=== PATIENT | female | born 1950 | race Caucasian/White ===

== ENCOUNTER → 2019-11-21 12:30 | Outpatient (BNVA) | payer MEDICARE, MEDICAID, SELFPAY | PROVIDERS: Family Provider Nurse Practitioner Family; PCP Nurse Practitioner Family; Visit Provider Nurse Practitioner Family | DX: I10 Essential (primary) hypertension (principal); E78.5 Hyperlipidemia, unspecified; E11.9 Type 2 diabetes mellitus without complications; G47.00 Insomnia, unspecified; M25.50 Pain in unspecified joint; G89.29 Other chronic pain | CPT/HCPCS: 80053; 80061; 83036; 83721; 85025 ==

== ENCOUNTER → 2019-12-19 13:16 | Outpatient (BNVA) | payer MEDICARE, MEDICAID, SELFPAY | PROVIDERS: Visit Provider Internal Medicine Nephrology | DX: N18.3 Chronic kidney disease, stage 3 (moderate) (principal) | CPT/HCPCS: 80069; 82310; 83970 ==

== ENCOUNTER → 2019-12-27 12:35 | Outpatient (BNVA) | payer MEDICARE, MEDICAID, SELFPAY | PROVIDERS: Visit Provider Internal Medicine Nephrology | DX: N18.3 Chronic kidney disease, stage 3 (moderate) (principal); D63.1 Anemia in chronic kidney disease | CPT/HCPCS: 80048; 80069; 81001; 82044; 82306; 82310; 82728; 83540; 83550; 83970; 85025 ==

== ENCOUNTER → 2020-01-04 12:32 | Outpatient (BNVA) | payer MEDICARE, MEDICAID, SELFPAY | PROVIDERS: PCP Nurse Practitioner Family; Visit Provider Specialist | DX: G43.711 Chronic migraine without aura, intractable, with status migrainosus (principal) | CPT/HCPCS: 64615; J0585 ==

== ENCOUNTER → 2020-01-12 11:20 | Outpatient (BNVA) | payer MEDICARE, MEDICAID, SELFPAY | PROVIDERS: PCP Nurse Practitioner Family; Visit Provider Nurse Practitioner Family | DX: M79.641 Pain in right hand (principal); M79.644 Pain in right finger(s); M54.2 Cervicalgia; M54.5 Low back pain; M54.6 Pain in thoracic spine; N18.9 Chronic kidney disease, unspecified; E11.9 Type 2 diabetes mellitus without complications | CPT/HCPCS: 73130; 80048 ==

== ENCOUNTER 2020-01-16 12:08 | Outpatient (CLI) | payer MEDICARE, MEDICAID, SELFPAY ==
--- NOTE | 2020-01-16 12:09 | MM_ITS ---
WS: [id number] Bilateral screening digital mammogram, 01/16/2020 Clinical Data: SCREENING Comparison: 01/03/2019, 12/27/2017, 12/21/2016, 12/17/2015, 08/08/2014, 08/07/2013, 06/09/2012, 05/18/2011, 01/30, 12/21/2008. Findings: The breast parenchymal pattern shows fibroglandular tissue No spiculated masses or clustered calcific ations are seen. There are no secondary signs of carcinoma. There are calcifications in the phillips of small vessels. MM/[place] [id number] Impression: 1. Negative bilateral mammogram unchanged. 2. Recommend annual screening mammograms. BIRADS: 1-Negative FOLLOW UP: 1 Year Follow-up The CAD [employer] was used.
== END 2020-01-16 12:09 | disposition home or self-care (01) ==
LOC: RADSHAW 12:08
PROVIDERS: PCP Nurse Practitioner Family; Visit Provider Nurse Practitioner Family
DX: Z12.31 Encounter for screening mammogram for malignant neoplasm of breast (principal)
CPT/HCPCS: 77067

== ENCOUNTER 2020-01-25 10:19 | Outpatient (CLI) | payer MEDICARE, MEDICAID, SELFPAY ==
--- NOTE | 2020-01-25 10:00 | CT_ITS ---
WS: [id number] CT cervical spine. Additional two-dimensional coronal and sagittal reconstruction was performed. 01/24 Clinical Data: neck pain Comparison: CT neck, 12/09/2012. DLP: 1321.[address] scans at [facility] use at least one of these dose optimization techniques: automat ed exposure control; mA and/or kV adjustment per patient size (includes targeted exams where dose is matched to clinical indication); or iterative reconstruction. Findings: No compression fractures are seen. The disc heights are normal. The spinous processes are in good ali gnment. The odontoid is unremarkable. There is no prevertebral soft tissue swelling. The soft tissues of the neck are not remarkable. C2-C3: No disc bulge, canal stenosis or foraminal stenosis is seen. C3-C4: No disc bulge, canal stenosis or foraminal stenosis is seen. C4-C5: No disc bulge, canal stenosis or foraminal stenosis is seen. C5-C6: No disc bulge, canal stenosis or foraminal stenosis is seen. C6-C7: No disc bulge, canal stenosis or foraminal stenosis is seen. C7-T1: No disc bulge, canal stenosis or foraminal stenosis is seen. CT/CT cervical spin wo con* [id number] Impression: Negative CT scan of the cervical spine.
--- NOTE | 2020-01-25 10:15 | CT_ITS ---
WS: [id number] CT of the lumbar spine, additional two-dimensional coronal and sagittal imaging was obtained. 01/25/20 20 Clinical Data: low back pain Comparison: MRI lumbar spine, 12/02/2009 DLP: 1649.[address] scans at [facility] use at least one of these dose optimization techniques: automat ed exposure control; mA and/or kV adjustment per patient size (includes targeted exams where dose is matched to clinical indication); or iterative reconstruction. Findings: No compression fractures are seen. There is a anterior subluxation of L4 and L5 of 0.3 cm. The disc heights are normal. Transverse processes and SI joints are normal. T12-L1: No canal stenosis, disc bulge or foraminal narrowing is seen. L1-L2: No canal stenosis, disc bulge or foraminal narrowing is seen. L2-L3: No canal stenosis, disc bulge or foraminal narrowing is seen. L3-L4: There is a central disc bulge with facet joint arthritis causing mild canal and foraminal sten osis. L4-L5: There is a central disc bulge along with facet joint arthritis causing canal and foraminal lang nosis. L5-S1: As a central disc bulge along with that joint arthritis causing canal and foraminal stenosis. CT/CT lumbar spine wo con* [id number] Impression: 1. Minimal subluxation of 0.3 cm of L4 and L5. 2. Multilevel canal and foraminal stenosis from bulging discs and facet joint a rthritis from L3-L4 to L5-S1.
== END 2020-01-25 10:20 | disposition home or self-care (01) ==
LOC: RADWPI 10:23
PROVIDERS: PCP Nurse Practitioner Family; Visit Provider Nurse Practitioner Family
DX: M48.07 Spinal stenosis, lumbosacral region (principal); M48.061 Spinal stenosis, lumbar region without neurogenic claudication; M54.5 Low back pain; M54.2 Cervicalgia
CPT/HCPCS: 72125; 72131

== ENCOUNTER → 2020-02-29 13:05 | Outpatient (BNVA) | payer MEDICARE, MEDICAID, SELFPAY | PROVIDERS: PCP Nurse Practitioner Family; Referring Provider Nurse Practitioner Family; Visit Provider Anesthesiology Pain Medicine | DX: M54.5 Low back pain (principal); M54.6 Pain in thoracic spine; M48.00 Spinal stenosis, site unspecified; Z79.891 Long term (current) use of opiate analgesic | CPT/HCPCS: 99203 ==

== ENCOUNTER 2020-03-08 09:58 | Day surgery (SDC) | payer MEDICARE, MEDICAID, SELFPAY ==
[2020-03-07 12:46] VITALS: BMI 26.2
--- NOTE | 2020-03-08 08:44 | P.HP_ITS ---
Same Day Surgery H&P Indication for Procedure/HPI DATE OF PROCEDURE: March 08, 2020 CHIEF COMPLAINT/INDICATIONFOR SURGICAL PROCEDURE: Postprandial diarrhea and screening for colon cancer PREOP DIAGNOSIS: Postprandial diarrhea and screening for colon cancer PLANNED PROCEDRUE: Operation Date: 03/08/20 11:15 Proposed Procedures p EGD 96014 K52.9(Not Applicable) - Jimbo Conway MD s Colonoscopy G0121 Z12.11(Not Applicable) - Jimbo Conway MD Medications/Allergies* Home Medications Medication Instructions Recorded Confirmed Type amlodipine 10 mg tablet 10 mg PO DAILY tab 11/08/19 03/07/20 History atorvastatin 40 mg tablet 40 mg PO .HS tab 11/08/19 03/07/20 History chlorthalidone 25 mg tablet 25 mg PO DAILY tab 11/08/19 03/07/20 History levothyroxine 50 mcg tablet 50 mcg PO DAILY tab 11/08/19 03/07/20 History losartan 100 mg tablet 100 mg PO DAILY tab 11/08/19 03/07/20 History metoprolol tartrate 50 mg tablet 50 mg PO DAILY tab 11/08/19 03/07/20 History nitroglycerin 0.4 mg sublingual 0.4 mg SUBLINGUAL Q5M PRN 11/08/19 03/07/20 History tablet omeprazole 40 mg capsule,delayed 40 mg PO BID 11/08/19 03/07/20 History release sitagliptin 50 mg tablet 50 mg PO DAILY tab 11/08/19 03/07/20 History topiramate 100 mg tablet 100 mg PO BID 11/08/19 03/07/20 History omega-3 fatty acids 1,000 mg 1,000 mg PO DAILY 01/04/20 03/07/20 History capsule potassium chloride 10 mEq 10 meq PO DAILY 01/04/20 03/07/20 History tablet,extended release spironolactone 25 mg tablet 25 mg PO BID 01/04/20 03/07/20 History Allergies/Adverse Reactions Allergy/AdvReac Type Severity Reaction Status Date / Time niacin Allergy Severe ALGY-Rash Verified 02/29/20 14:20 Pertinent History/Comorbid Conditions* Medical History (Updated 02/29/20 @ 14:54 by Junior Olmstead MD) Aortic stenosis Chronic insomnia Chronic pain of multiple joints CKD (chronic kidney disease) Diabetes Diabetic neuropathy Dizziness Dyslipidemia Hyperlipemia Hypertension Myocardial infarction Obesity Family History (Updated 11/08/19 @ 16:18 by Dayami Macario RN) CAD (coronary artery disease) Brother Father Son Myocardial infarction Brother Father Cancer Brother Mother Social History Smoking and tobacco status: never smoked Second hand smoke exposure: No Alcohol intake: unknown Lives independently: Yes Marital status: Legally service: No Current occupational status: retired History of recent travel: No Current gender identity: Female Special shital needs: No Agree to transfusion: Yes Pertinent Exam Findings alert Recommendations Surgery/Procedure today Coding Level of Care Code Acute 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
[2020-03-08 10:22] VITALS: BP 128/75; PULSE 79; RESP 18; TEMP 36.2; O2SAT 98
[2020-03-08] MEDS: sodium chloride 0.9% 1,000 ML 30 ML IV (10:34)
[2020-03-08 10:35] LABS: Glucose Point of Care 186 mg/dL (70-110)
--- NOTE | 2020-03-08 10:58 | ANES.PREANE2 ---
Pre-Anesthetic Assessment Pre-Anesthetic Assessment: Height/Weight: Height 1.7 m Weight 75.75 kg Temp Pulse Resp BP Pulse Ox 97.1 F L 79 18 128/75 98 03/08/20 10:22 03/08/20 10:22 03/08/20 10:22 03/08/20 10:22 03/08/20 10:22 Preop Diagnosis: abdominal pain Proposed Procedure: Operation Date: 03/08/20 11:15 Proposed Procedures p EGD 93353 K52.9(Not Applicable) - Jimbo Conway MD s Colonoscopy G0121 Z12.11(Not Applicable) - Jimbo Conway MD Familial anesthetic complications: None Was Beta Rolan taken within 24 hours: Yes Last intake: Intake Last Liquid Date 03/07/20 Last Liquid Time 19: Last Solid Date 03/07/20 Last Solid Time :00 Social: Social History: No alcohol and No tobacco Exam: Pre-Anes Outpt Exam: alert, oriented x 3, clear to auscultation bilaterally and regular rate & rhythm Airway: Cervical ROM: WNL MP: 3 Dentition: False Pulmonary: Pulmonary: None reported CV/HEM: CV/HEM: HTN and CA (1995) : : Chronic renal Insufficiency Hepatic: Hepatic: None reported GI: GI: GERD and None reported Metabolic: Metabolic: DM Musc/skel: Musc/skel: Lower Back Pain and None reported Neuropsych: Neuropsych: None reported Anesthetic Plan: ASA status: 3 Anesthesia: MAC Risk of > 500 ml blood loss (7ml/kg in children): No Meds/Allergies Current Medications: Current Medications Generic Name Dose Route Start Last Admin Trade Name Freq PRN Reason Stop Dose Admin Sodium Chloride 1,000 mls @ 30 ml s/hr 03/08/20 09:00 03/08/20 10:34 Sodium Chloride 0.9% IV 30 mls/hr .Q24H BERYL Administration PFSH Anesthesia PFSH: Medical History (Updated 02/29/20 @ 14:54 by Junior Olmstead MD) Aortic stenosis Chronic insomnia Chronic pain of multiple joints CKD (chronic kidney disease) Diabetes Diabetic neuropathy Dizziness Dyslipidemia Hyperlipemia Hypertension Myocardial infarction Obesity Social History Smoking and tobacco status: never smoked Second hand smoke exposure: No Alcohol intake: unknown Lives independently: Yes Marital status: Legally service: No Current occupational status: retired History of recent travel: No Current gender identity: Female Special shital needs: No Agree to transfusion: Yes Data Anesthesia Other Labs: Laboratory Results - last 48 hr 03/08/20 10:30 POC Glucose 186 Cardiac Studies: No Data to Display
[2020-03-08 12:23] VITALS: BP 137/65; PULSE 73; RESP 16; TEMP 36.1; O2SAT 98
[2020-03-08 12:55] VITALS: BP 143/66; PULSE 70; RESP 18; O2SAT 70
== END 2020-03-08 13:15 | disposition home or self-care (01) ==
PROVIDERS: PCP Nurse Practitioner Family; Visit Provider Internal Medicine
PROC: 0DJ08ZZ Inspection of Upper Intestinal Tract, Via Natural or Artificial Opening Endoscopic (ICD-10-PCS; CPT 43235; principal; 2020-03-08 11:15)
PROC: 0DJD8ZZ Inspection of Lower Intestinal Tract, Via Natural or Artificial Opening Endoscopic (ICD-10-PCS; CPT 45378; 2020-03-08 11:15)
DX: Z12.11 Encounter for screening for malignant neoplasm of colon (principal); K63.89 Other specified diseases of intestine; K52.9 Noninfective gastroenteritis and colitis, unspecified; E11.22 Type 2 diabetes mellitus with diabetic chronic kidney disease; I12.9 Hypertensive chronic kidney disease with stage 1 through stage 4 chronic kidney disease, or unspecified chronic kidney disease; N18.9 Chronic kidney disease, unspecified; E11.40 Type 2 diabetes mellitus with diabetic neuropathy, unspecified; E78.5 Hyperlipidemia, unspecified; I25.2 Old myocardial infarction; E66.9 Obesity, unspecified; Z68.26 Body mass index [BMI] 26.0-26.9, adult; Z82.49 Family history of ischemic heart disease and other diseases of the circulatory system; K21.9 Gastro-esophageal reflux disease without esophagitis
CPT/HCPCS: 43235; G0121; 12345; 36416; 45380; 82962; J2704; J7030

== ENCOUNTER → 2020-03-11 10:38 | Outpatient (BNVA) | payer MEDICARE, MEDICAID, SELFPAY | PROVIDERS: PCP Nurse Practitioner Family; Visit Provider Anesthesiology Pain Medicine | DX: M47.816 Spondylosis without myelopathy or radiculopathy, lumbar region (principal); M54.6 Pain in thoracic spine | CPT/HCPCS: 64493; 64494; 64495; 88305; J2001; J3490 ==

== ENCOUNTER → 2020-03-18 12:27 | Outpatient (BNVA) | payer MEDICARE, MEDICAID, SELFPAY | PROVIDERS: PCP Nurse Practitioner Family; Visit Provider Internal Medicine Nephrology | DX: N18.3 Chronic kidney disease, stage 3 (moderate) (principal) | CPT/HCPCS: 80069; 81003; 82044; 82306; 82310; 82728; 83550; 83883; 83970; 84155; 84156; 84165; 85025; 86335 ==

== ENCOUNTER → 2020-03-28 09:57 | Outpatient (BNVA) | payer MEDICARE, MEDICAID, SELFPAY | PROVIDERS: PCP Nurse Practitioner Family; Visit Provider Anesthesiology Pain Medicine | DX: M54.41 Lumbago with sciatica, right side (principal); M54.42 Lumbago with sciatica, left side; M48.00 Spinal stenosis, site unspecified; E11.40 Type 2 diabetes mellitus with diabetic neuropathy, unspecified; Z79.891 Long term (current) use of opiate analgesic; G43.711 Chronic migraine without aura, intractable, with status migrainosus | CPT/HCPCS: 64615; 96372; 99213; J0585; J1885 ==

== ENCOUNTER → 2020-04-03 14:41 | Outpatient (BNVA) | payer MEDICARE, MEDICAID, SELFPAY | PROVIDERS: PCP Nurse Practitioner Family; Visit Provider Anesthesiology Pain Medicine | DX: M47.816 Spondylosis without myelopathy or radiculopathy, lumbar region (principal); M54.6 Pain in thoracic spine; M54.9 Dorsalgia, unspecified; Z79.891 Long term (current) use of opiate analgesic | CPT/HCPCS: 64635; 64636; 77003; J1030; J2001 ==

== ENCOUNTER → 2020-04-08 13:42 | Outpatient (BNVA) | payer MEDICARE, MEDICAID, SELFPAY | PROVIDERS: PCP Nurse Practitioner Family; Visit Provider Anesthesiology Pain Medicine | DX: M47.816 Spondylosis without myelopathy or radiculopathy, lumbar region (principal); M54.6 Pain in thoracic spine; M54.9 Dorsalgia, unspecified; Z79.891 Long term (current) use of opiate analgesic | CPT/HCPCS: 64635; 64636; 77003; J1030; J2001 ==

== ENCOUNTER → 2020-04-22 11:07 | Outpatient (BNVA) | payer MEDICARE, MEDICAID, SELFPAY | PROVIDERS: PCP Nurse Practitioner Family; Visit Provider Anesthesiology Pain Medicine | DX: M54.6 Pain in thoracic spine (principal); M54.5 Low back pain; M48.00 Spinal stenosis, site unspecified; E11.40 Type 2 diabetes mellitus with diabetic neuropathy, unspecified; M79.601 Pain in right arm; M79.604 Pain in right leg; M79.605 Pain in left leg; M25.511 Pain in right shoulder; Z79.891 Long term (current) use of opiate analgesic | CPT/HCPCS: 99213; 99214 ==

== ENCOUNTER → 2020-04-29 15:03 | Outpatient (BNVA) | payer MEDICARE, MEDICAID, SELFPAY | PROVIDERS: PCP Nurse Practitioner Family; Visit Provider Nurse Practitioner Family | DX: M25.561 Pain in right knee (principal); M25.562 Pain in left knee; M25.511 Pain in right shoulder; R30.0 Dysuria | CPT/HCPCS: 73030; 73562; 80048; 81000; 85025; 87086 ==

== ENCOUNTER → 2020-06-03 10:57 | Outpatient (BNVA) | payer MEDICARE, MEDICAID, SELFPAY | PROVIDERS: PCP Nurse Practitioner Family; Visit Provider Internal Medicine | DX: Z11.59 Encounter for screening for other viral diseases (principal) | CPT/HCPCS: 87635 ==

== ENCOUNTER 2020-06-05 11:55 | Observation (INO) | payer MEDICARE, MEDICAID, SELFPAY ==
--- NOTE | 2020-05-31 10:01 | ECG_ITS ---
[facility] Test Date: 2020-05-31 Pat Name: Debbie Garcia Department: Room: Gender: Female Proctologist: : 1950 Requested By: Beni León Order Number: [id number] Alethea MD: Donnie Rush M.D. Measurements Intervals [place] Rate: 62 P: 29 AR: 171 QRS: -8 QRSD: 100 T: 2 QT: 381 QTc: 390 Interpretive Statements SINUS RHYTHM LOW QRS VOLTAGE IN PRECORDIAL LEADS [QRS DEFLECTION < 1.0 mV IN CHEST LEADS] POSSIBLE ANTERIOR MYOCARDIAL INFARCTION [30 ms Q WAVE IN V3/V4, OR R < 0.2 mV IN V4], PROBABLY OLD Compared to ECG 07/04/2018 10:14:19 Low QRS voltage now present Myocardial infarct finding still present Electronically Signed On 05-31-2020 16:16:41 CDT by Donnie Rush M.D. [email or web address]
[2020-05-31 10:22] LABS: Hematocrit 39.1 % (37.0-47.0); Hemoglobin 12.6 g/dL (11.5-15.3); Mean Corpuscular HGB Conc 32.2 g/dL (30.0-36.0); Mean Corpuscular Hemoglobin 28.9 pg (28.0-34.0); Mean Corpuscular Volume 89.7 fL (81-99); Mean Platelet Volume 9.6 fL (7.4-10.4); Platelet Count 294 10^3/cmm (130-400); Red Blood Count 4.36 10^6/uL (4.1-5.3); Red Cell Distribution Width 13.2 % (12.1-15.1); White Blood Count 8.9 10^3/uL (4.0-10.0)
--- NOTE | 2020-05-31 10:31 | ANES.PREANE2 ---
Pre-Anesthetic Assessment Pre-Anesthetic Assessment: Height/Weight: Height 1.63 m Weight 81.647 kg Preop Diagnosis: Osteoarthritis left knee Proposed Procedure: Operation Date: 06/05/20 14:45 Proposed Procedures p Total Knee Arthroplasty 62775 M17.0(Left) - Jon Ahuja MD Social: Social History: No alcohol and No tobacco Exam: Pre-Anes Outpt Exam: alert, oriented x 3, clear to auscultation bilaterally and regular rate & rhythm Airway: Submandibular: WNL Cervical ROM: WNL MP: 2 Dentition: False (upper and lower) History/ROS: No significant history except as noted Pulmonary: Pulmonary: None reported CV/HEM: CV/HEM: HTN and IL (no CAD, stress related IL) : Comments: one kidney Hepatic: Hepatic: None reported GI: GI: GERD (controlled) Metabolic: Metabolic: DM and Hyperlipidemia Musc/skel: Musc/skel: OA/DJD Neuropsych: Neuropsych: Anxiety and Depression Anesthetic Plan: ASA status: 3 Anesthesia: Anesthesia Evaluation, Eval. for regional block, General and Regional (specify below) (left AC) Risk of > 500 ml blood loss (7ml/kg in children): Yes, adequate IV access and fluids planned PFSH Anesthesia PFSH: Medical History Aortic stenosis Chronic insomnia Chronic pain of multiple joints CKD (chronic kidney disease) Diabetes Diabetic neuropathy Dizziness Dyslipidemia Hyperlipemia Hypertension Myocardial infarction Obesity Family History Brother Cancer CAD (coronary artery disease) Myocardial infarction Mother Cancer Father CAD (coronary artery disease) Myocardial infarction Son CAD (coronary artery disease) Social History Smoking and tobacco status: never smoked Second hand smoke exposure: No Alcohol intake: unknown Lives independently: Yes Marital status: Legally service: No Current occupational status: retired History of recent travel: No Current gender identity: Female Special shital needs: No Agree to transfusion: Yes Data Anesthesia CBC & Chem 7: 05/31/20 10:03 05/31/20 10:03 Other Labs: Laboratory Results - last 48 hr 05/31/20 10:03 WBC 8.9 RBC 4.36 Hgb 12.6 Hct 39.1 MCV 89.7 MCH 28.9 MCHC 32.2 RDW 13.2 Plt Count 294 MPV 9.6 Cardiac Studies: No Data to Display
[2020-05-31 10:37] LABS: Alanine Aminotransferase 11 U/L (0-33); Albumin Level 4.2 g/dL (3.5-5.2); Alkaline Phosphatase 84 IU/L (35-105); Anion Gap 14.2 (5-19); Aspartate Amino Transferase 23 U/L (0-32); Blood Urea Nitrogen 30 mg/dL (8-23); Carbon Dioxide 22 mmol/L (22-29); Chloride 108 mmol/L (98-107); Globulin 3.5 g/dL (1.3-4.6); Glucose 166 mg/dL (65-115); Osmolality Calculated 291 mOsm/kg (285-295); Potassium 4.2 mmol/L (3.5-5.1); Sodium 140 mmol/L (136-145); Total Bilirubin 0.2 mg/dL (0.15-1.2); Total Protein 7.7 g/dL (6.6-8.7)
[2020-05-31 11:25] LABS: Absolute Eosinophils 0.8 10^3/cmm (0.0-0.7); Absolute Segmented Neutrophil 4.7 10/cmm (1.6-7.1); Band Neutrophils Absolute 0.3 10^3/cmm (0.0-1.2); Eosinophils 10 %; Lymphocytes 32 %; Monocytes Absolute 0.2 10^3/cmm (0.1-0.6); Platelet Estimate Normal (Normal); Segmented Neutrophils 53 %; Total Cells Counted 100 (0-100)
[2020-05-31 11:29] LABS: Add Urine Culture? No; Add Urine Microscopic? YES; Bacteria Urine TRACE; Bilirubin Urine Neg (NEGATIVE); Blood Urine Neg (Negative); Glucose Urine UA Norm (Normal); Ketones Urine Negative (Negative); Leukocyte Esterase Urine 2+ (Negative); Mucus Urine TRACE; Nitrate Urine Negative (Negative); Protein Urine Neg (Negative); Squamous Epithelial Cell Urine 25-40 (0-5); Urine Appearance Clear (CLEAR); Urine Color Yellow (Yellow); Urobilinogen Urine Norm (Negative)
[2020-06-05] VITALS (25 sets, daily range): BP systolic 114–180; BP diastolic 49–92; PULSE 72–95; RESP 13–25; TEMP 36.4–36.8; O2SAT 93–100
[2020-06-05 09:08] LABS: Glucose Point of Care 173 mg/dL (70-110)
[2020-06-05] MEDS: sodium chloride 0.9% 1,000 ML 30 ML IV (09:15)
[2020-06-05] MEDS: midazolam 1 mg/mL INJ 2 mL 2 MG IVP (09:28)
--- NOTE | 2020-06-05 09:31 | ANES.PROC ---
Anesthesia Procedures Procedure/Date: 06/05/20 Nerve Block ^: Nerve Block 1: Main Anesthesia: general anesthesia Time Out Performed: Yes Consent: requested by attending/covering physician, from patient, risks and benefits reviewed and patient agrees to proceed Nerve block location: adductor canal (L) Anesthesia monitors applied: pulse oximetry, BP cuff and oxygen Nerve block position: supine Anesthetic Used: ropivicaine 0.5% and with decadron (4) Amount of anesthesia used (mL): 39 Ultrasound used to: recognize landmarks Interscalene/Femoral BLK: 4 stimuplex 21 g needle used for position and inplane approach, visualize local anesthetic spread and no vascular puncture identified Injection: neg aspiration of heme Patient Tolerated Procedure: well Complications: none
--- NOTE | 2020-06-05 09:58 | W.PM.OPSUD ---
Surgery/Procedure H&P Update DATE OF PROCEDURE: June 05, 2020 DATE H&P PERFORMED: 05/13/20 PREOP DIAGNOSIS: Osteoarthritis left knee PLANNED PROCEDURE: Operation Date: 06/05/20 10:05 Proposed Procedures p Total Knee Arthroplasty 39048 M17.0(Left) - Jon Ahuja MD
[2020-06-05] MEDS: EPINEPHrine 1 mg/mL INJ XX (10:41)
[2020-06-05] MEDS: ketorolac 30 mg/mL INJ IM (10:41)
[2020-06-05] MEDS: tranexamic acid 1,000 mg/10mL SDV 1000 MG IRRIGATION (10:42)
--- NOTE | 2020-06-05 11:48 | SUR.PHASEI ---
1145 PATIENT TO PACU FROM OR. RR EVEN AND UNLABORED. SPO2 99% ON SIMPLE MASK. DRESSING TO LEFT KNEE, CDI. LEFT PEDAL PULSE, STRONG AND MARKED. LEBL[place] IN PLACE.
--- NOTE | 2020-06-05 11:49 | P.OP_ITS ---
Operative Report Date of procedure: June 05, 2020 Pre-op Diagnosis: Osteoarthritis left knee Post-op diagnosis: same Post-op Findings: Same Procedure Done: Left total knee arthroplasty Implants: Laura total knee arthroplasty components were used includin) Size 3 triathalon cruciate retaining femoral component 2) Size 3 Tritanium tibial component 3) 32 mm /10 mm thickness Tritanium asymetric patella 4) Size 3/9 mm thickness CR tibial bearing insert Pathology: none sent Surgeon: Jon Ahuja Anesthesia: General and Nerve Block (Adductor canal block) Estimated blood loss (mL): 200 Complications: None Findings: Patient had eburnated bone over the medial femoral condyle and medial tibial plateau Condition: stable Disposition: PACU Procedure: The patient was taken to the operating room. Patient was given 1 g of tranexamic acid . The above anesthesia provided by the anesthesia service. A timeout was performed. The patient was prepped and draped in the usual fashion with the lower extremity exposed. A anterior incision was made, midline , from a point proximal to the patella to the distal tibial tubercle. The knee was entered through a medial parapatellar approach. The patella could be displaced laterally and the knee flexed. The patellar fat pad was resected to provide better visibility. Retractors were placed medially and laterally adjacent to the tibial plateau. The femoral canal was drilled in line with the longitudinal axis of the femur. Intramedullary femoral guide for used to make a distal femoral cut in 5 degrees of valgus, resecting 8 mm from the more prominent condyle. Next the extra medullary tibial guide was placed in alignment with the longitudinal axis of the tibia. The cutting guides were set to remove just over 9 mm from the high tibial plateau. The proximal tibia was then cut. The femoral measuring guide was then placed over the distal femur. Rotation was verified checking the relationship of the guide to the condyle and the trochlear groove. The femur was measured and cut for the desired femoral component. The desired tibial baseplate was then chosen. A trial reduction with the femur tibial baseplate and polyethylene was done, assuring that the knee was stable throughout full motion. Ligament balancing valve nothing more than a release of the deep medial collateral ligament.The tibia was prepared for the tibial baseplate. Patellar thickness was then measured. The patella was cut removing articular cartilage and prepared for appropriate size patellar button. All surfaces were cleaned with pulsatile lavage. The femur tibia and patella were then rasped into place. The posterior capsule and collateral ligaments were then injected with a solution of 100 mL of 0.2% ropivacaine, 1 mL of a 1:1000 epinephrine solution, and 30 mg of Toradol. Final polyethylene component was then snapped into place into the tibia. 2 grams of tranexamic acid were applied to the wound. The tourniquet was deflated. The tranxanemic acid was left contact with the knee for 5 minutes before the knee was irrigated with saline. The extensor retinaculum was closed with 1 Ethibond. The subcutaneous tissues were closed with 2-0 Vicryl and the skin was closed with skin magnolia. A compressive dressing was applied. The patient was taken to recovery room in stable condition.
--- NOTE | 2020-06-05 12:03 | XRR_ITS ---
PROCEDURE INFORMATION: Exam: XR Left Knee Exam date and time: 06/05/2020 12:17 PM Age: 70 years old Clinical indication: Condition or disease; Other: Post op left total knee arthroplasty; Prior surgery; Surgery date: Post-operative (0-2 days) TECHNIQUE: Imaging protocol: XR Left knee. Views: 1 or 2 views. COMPARISON: CR XR knee LT 3V* [id number] 04/29/2020 3:20 PM FINDINGS: Bones/joints: A left total knee arthroplasty has been performed. The surgical hardware is in place and intact. No acute fracture or dislocation is seen. Soft tissues: Skin magnolia are noted along the anterior knee. Postoperative air is present in the soft tissues. XR/XR knee LT 1-2V [id number] IMPRESSION: Status post left total knee arthroplasty
[2020-06-05] MEDS: fentaNYL 50 mcg/mL INJ 2mL IVP (12:14)
--- NOTE | 2020-06-05 12:43 | SUR.PHASEI ---
1230 PATIENT TO MED SURG. NO DISTRESS. DRESSING TO LEFT KNEE, CDI WITH PEDAL PULSE, STRONG AND MARKED. FIRST ICE IN PLACE. PATIENT TOLERATING ICE CHIPS. PAIN IMPROVED.
[2020-06-05] MEDS: chlorhexidine gluconate 0.12% Btl 473 mL 30 ML MUCOUS MEM ×3 (13:39→22:23)
[2020-06-05] MEDS: CELEcoxib 200 mg Capsule PO (13:39)
[2020-06-05] MEDS: morphine 4 mg/mL SDV 1 mL 2 MG IVP (14:29)
[2020-06-05] MEDS: hyDRALAzine 50 mg Tablet PO ×2 (15:47→22:22)
[2020-06-05] MEDS: gabapentin 300 mg Capsule PO ×2 (15:47→22:22)
[2020-06-05 17:09] LABS: Glucose Point of Care 519 mg/dL (70-110)
[2020-06-05 17:09] LABS: Glucose Point of Care 501 mg/dL (70-110)
[2020-06-05] MEDS: mupirocin oint 22 gm 1 APPLIC NASAL (17:18)
[2020-06-05] MEDS: spironolactone 25 mg Tablet PO (17:19)
[2020-06-05] MEDS: sennosides-docusate Tablet 2 TAB PO (17:19)
[2020-06-05] MEDS: sodium chloride 0.9% 1,000 ML 80 ML IV (17:20)
--- NOTE | 2020-06-05 18:33 | P.PN_ITS ---
Subjective Subjective: Interval history: Pain at a 2. Good po intake for dinner Vitals/I&O/Wt Last Vital Signs Temp 97.6 F 06/05/20 12:45 Pulse 92 06/05/20 16:39 Resp 16 06/05/20 16:39 BP 114/77 06/05/20 14:30 Pulse Ox 98 06/05/20 16:39 06/05/20 06/05/20 06/05/20 06:59 14:59 22:59 Intake Total 160 / 160 Output Total 300 / 300 Balance -140 / -140 Physical Exam Narrative: EXAM NARRATIVE: L knee dressing clean and dry. Moves toes Urinary Catheter Management^: F: Cath Placed During This Visit: yes Reason for Continuing Indwelling Catheter: Perioperative Use in Selected Surgeries Urinary Catheter Date of Insertion: 06/05/20 Urinary Catheter Time of Insertion: 10:15 Data : 05/31/20 10:03 05/31/20 10:03 A&P Assessment and plan (1) Osteoarthritis of right knee: Status: Acute (2) Status post right knee replacement: Doing well so far. Good performance with therapy. Anticipate discharge tomorrow Status: Acute (3) Diabetes: Will begin home regimen in morning. 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
[2020-06-05 19:28] LABS: Glucose Point of Care 312 mg/dL (70-110)
[2020-06-05 20:48] LABS: Glucose Point of Care 332 mg/dL (70-110)
[2020-06-05] MEDS: atorvastatin 40 mg Tablet PO (22:22)
[2020-06-05] MEDS: topiramate 100 mg Tablet 150 MG PO (22:22)
[2020-06-05] MEDS: oxyCODONE 5 mg IR Tab/Cap PO (22:23)
[2020-06-06] VITALS (9 sets, daily range): BP systolic 104–158; BP diastolic 61–68; PULSE 77–87; RESP 17–18; TEMP 36.5–37.6; O2SAT 95–96
[2020-06-06] MEDS: CELEcoxib 200 mg Capsule PO ×2 (00:53→12:14)
[2020-06-06] MEDS: topiramate 100 mg Tablet PO (01:23)
[2020-06-06 03:07] LABS: Hemoglobin 9.9 g/dL (11.5-15.3)
[2020-06-06] MEDS: oxyCODONE 5 mg IR Tab/Cap PO ×3 (05:34→14:55)
[2020-06-06] MEDS: topiramate 100 mg Tablet 150 MG PO (05:35)
[2020-06-06 06:21] LABS: Glucose Point of Care 176 mg/dL (70-110)
--- NOTE | 2020-06-06 09:09 | PM.DCS ---
Discharge Providers Date of Admission: 06/05/20 11:55 Date of Discharge: June 06, 2020 Attending Provider at Admission: Jon Ahuja MD Attending Provider at Discharge: Jon Ahuja MD Primary Care Provider: VU Mae Diagnoses at Discharge Discharge Diagnosis (1) Osteoarthritis of right knee: Status: Deleted (2) Status post right knee replacement: Status: Deleted (3) Diabetes: Status: Acute Reason for Visit Reason for Visit: Primary osteoarthritis of bilateral knee Hospital Course Discharge Summary: The patient did well postoperatively. Her pain was adequately controlled with oral medications. She is to be gone on aspirin and sequential compression dressings for DVT prophylaxis. She regain full ambulatory status by the first postoperative day. She remained hemodynamically stable. Her blood sugars improved with a sliding scale insulin and she will be instructed to return to her home diabetic medication profile upon discharge. Physical Exam Narrative: EXAM NARRATIVE: 06/06/2020 the patient's incision was free of drainage. She had minimal swelling in her knee and the calf. She had no distal neurovascular deficits. Her sensation was intact light touch Urinary Catheter Management^: F: Cath Placed During This Visit: yes Reason for Continuing Indwelling Catheter: Perioperative Use in Selected Surgeries Urinary Catheter Date of Insertion: 06/05/20 Urinary Catheter Time of Insertion: 10:15 Discharge Data Data Completed and Pending: Completed Studies During Hospitalization Category Date Time Status XR knee LT 1-2V 7 3560 Routine Exams 06/05/20 12:03 Completed Labs from last 24 hours 06/06/20 06/06/20 06/05/20 06:11 02:28 20:35 Hgb 9.9 L POC Glucose 176 332 06/05/20 06/05/20 06/05/20 19:25 16:49 16:47 Hgb POC Glucose 312 501 519 Vitals: Last Vital Signs Temp 98.0 F 06/06/20 07:52 Pulse 78 06/06/20 07:52 Resp 17 06/06/20 07:52 BP 139/61 06/06/20 07:52 Pulse Ox 96 06/06/20 07:52 Discharge Plan Discharge Patient Disposition: Home Condition: Stable Prescriptions: New oxycodone 5 mg Tablet 5 mg PO Q4H PRN (Reason: Moderate Pain) 7 Days Qty: 40 RF: 0 aspirin 325 mg Tablet,Delayed Release (Dr/Ec) 325 mg PO DAILY 30 Days Qty: 30 RF: 0 celecoxib 200 mg Capsule 200 mg PO Q12H 15 Days Qty: 30 RF: 0 Continued nitroglycerin [Nitrostat] 0.4 mg tablet, sublingual 0.4 mg SUBLINGUAL Q5M PRN (Reason: Angina) RF: 0 atorvastatin 40 mg tablet 40 mg PO .HS RF: 0 amlodipine 10 mg tablet 10 mg PO DAILY RF: 0 losartan 100 mg tablet 100 mg PO DAILY RF: 0 Januvia 50 mg tablet 50 mg PO DAILY RF: 0 metoprolol tartrate 50 mg tablet 50 mg PO DAILY RF: 0 trazodone 50 mg tablet 50 mg PO QDAY PRN (Reason: insomnia) 30 Days Qty: 30 RF: 1 tramadol 50 mg tablet 50 mg PO Q6H PRN (Reason: pain) 30 Days Qty: 120 RF: 1 spironolactone 25 mg tablet 25 mg PO BID RF: 0 potassium chloride 10 mEq tablet extended release 10 meq PO DAILY RF: 0 biotin 5,000 mcg tablet, sublingual 5,000 mcg SUBLINGUAL DAILY RF: 0 fenofibrate nanocrystallized 145 mg tablet 145 mg PO QDAY Qty: 30 RF: 1 hydralazine 50 mg tablet 50 mg PO TID 90 Days Qty: 270 RF: 3 sumatriptan succinate 25 mg tablet 25 mg PO .PRN MDD 50mg PRN (Reason: migraine headache) Qty: 9 RF: 3 chlorthalidone 25 mg tablet 25 mg PO DAILY 90 Days Qty: 90 RF: 3 topiramate 100 mg tablet See Rx Instructions PO TID Qty: 90 RF: 4 tizanidine 2 mg tablet 2 mg PO BID PRN (Reason: muscle spasticity) Qty: 60 RF: 0 gabapentin 300 mg capsule 300 mg PO TID Qty: 90 RF: 0 omeprazole 40 mg capsule,delayed release(DR/EC) See Rx Instructions .ROUTE .COMPLEX Qty: 30 RF: 4 Victoza 2-Angel Luis 0.6 mg/0.1 mL (18 mg/3 mL) pen injector 1.8 mg SUBCUT Q24H Qty: 6 RF: 5 insulin aspart U-100 [Novolog Flexpen U-100 Insulin] 100 unit/mL (3 mL) insulin pen 6 unit SUBCUT DIRECTED RF: 0 Discharge Orders: Discharge Order (Routine); Ordered 06/06/20 Ordered By: Jon Ahuja Other Ambulatory Orders: DME: Walker (Order) Location: None Selected Ordered By: Jon Ahuja Physical Therapy Eval and Treat Outpatient (Order) Timeframe: 4 Days Facility: [facility] - Location: Physical Therapy Ordered By: Jon Ahuja Discharge Diet: Advance as tolerated Discharge Activity: Use walker/crutches as instructed Activity Restrictions/Additional Instructions: May shower once incisions completely free of drainage. Replaced dressings as needed for drainage. Take Celebrex twice a day for the next 15 days, discontinue other anti-inflammatories Take oxycodone for breakthrough pain. Exercises per physical therapy. Ice and elevate knees as needed for pain and swelling. Weight-bear as tolerated on total knee Discharge Attestations Time Spent in Discharge Care*: other Quality Metrics Clinical Quality Measures During this hospital stay, did patient experience: None Coding Level of Care Code Acute [employer] for [employer] Diagnoses Osteoarthritis of right knee M17.11 Status post right knee replacement Z96.651 Diabetes E11.9
[2020-06-06] MEDS: sennosides-docusate Tablet 2 TAB PO (10:10)
[2020-06-06] MEDS: losartan 50 mg Tablet 100 MG PO (10:11)
[2020-06-06] MEDS: pantoprazole DR 40 mg Tablet PO (10:11)
[2020-06-06] MEDS: amlodipine 10 mg Tablet PO (10:11)
[2020-06-06] MEDS: metoprolol tartrate 50 mg Tablet PO (10:12)
[2020-06-06] MEDS: gabapentin 300 mg Capsule PO ×2 (10:14→14:55)
[2020-06-06] MEDS: potassium chloride ER 10 mEq Tablet PO (10:14)
[2020-06-06] MEDS: spironolactone 25 mg Tablet PO (10:14)
[2020-06-06] MEDS: aspirin 325 mg EC Tablet PO (10:16)
[2020-06-06] MEDS: chlorhexidine gluconate 0.12% Btl 473 mL 30 ML MUCOUS MEM ×2 (10:16→12:15)
[2020-06-06] MEDS: hyDRALAzine 50 mg Tablet PO ×2 (10:17→14:55)
[2020-06-06] MEDS: chlorthalidone 25 mg Tablet PO (10:17)
[2020-06-06] MEDS: fenofibrate 145 mg Tablet PO (10:17)
[2020-06-06] MEDS: sitagliptin 100 mg Tablet 50 MG PO (10:18)
[2020-06-06 11:11] LABS: Glucose Point of Care 406 mg/dL (70-110)
[2020-06-06] MEDS: topiramate 25 mg Tablet 50 MG PO (12:14)
[2020-06-06 17:18] LABS: Glucose Point of Care 215 mg/dL (70-110)
--- NOTE | 2020-06-06 18:07 | PC.NURSE ---
DC instructions given, voiced full understanding, IV dc'd cath intact, bleeding controlled with 2x2's and coban
== END 2020-06-06 17:27 | disposition home or self-care (01) ==
LOC: MEDSURG 12:05
PROVIDERS: Anesthesiology; Admitting Provider Orthopaedic Surgery; PCP Nurse Practitioner Family; Visit Provider Orthopaedic Surgery
PROC: (CPT 27447; principal; 2020-06-05 10:05)
DX: M17.12 Unilateral primary osteoarthritis, left knee (principal); E11.9 Type 2 diabetes mellitus without complications; Z79.84 Long term (current) use of oral hypoglycemic drugs; M17.11 Unilateral primary osteoarthritis, right knee; Z96.651 Presence of right artificial knee joint; I10 Essential (primary) hypertension; I25.2 Old myocardial infarction; K21.9 Gastro-esophageal reflux disease without esophagitis; E78.5 Hyperlipidemia, unspecified; E66.9 Obesity, unspecified; Z68.30 Body mass index [BMI] 30.0-30.9, adult
CPT/HCPCS: 27447; 12345; 36415; 36416; 51702; 73560; 73562; 80053; 81001; 81003; 82962; 85007; 85018; 85027; 93005; 96365; 96372; 96374; 96375; 97110; 97116; 97161; 97165; C1776; G0378; J0171; J0690; J1100; J1580; J1815; J1885; J2250; J2270; J2370; J2704; J2795; J3010; J3490; J7030

== ENCOUNTER → 2020-07-23 09:47 | Outpatient (BNVA) | payer MEDICARE, MEDICAID, SELFPAY | PROVIDERS: PCP Nurse Practitioner Family; Visit Provider Orthopaedic Surgery | DX: Z47.1 Aftercare following joint replacement surgery (principal); Z96.652 Presence of left artificial knee joint | CPT/HCPCS: 73560; 73565 ==

== ENCOUNTER → 2020-08-07 10:12 | Outpatient (BNVA) | payer MEDICARE, MEDICAID, SELFPAY | PROVIDERS: PCP Nurse Practitioner Family; Visit Provider Anesthesiology Pain Medicine | DX: M54.5 Low back pain (principal); M54.6 Pain in thoracic spine; M48.00 Spinal stenosis, site unspecified; E11.40 Type 2 diabetes mellitus with diabetic neuropathy, unspecified; Z79.891 Long term (current) use of opiate analgesic | CPT/HCPCS: 99213 ==

== ENCOUNTER → 2020-08-12 12:06 | Outpatient (BNVA) | payer MEDICARE, MEDICAID, SELFPAY | PROVIDERS: PCP Nurse Practitioner Family; Visit Provider Nurse Practitioner Family | DX: E11.65 Type 2 diabetes mellitus with hyperglycemia; R53.83 Other fatigue; Z79.4 Long term (current) use of insulin; N18.30 Chronic kidney disease, stage 3 unspecified; E78.5 Hyperlipidemia, unspecified; I12.9 Hypertensive chronic kidney disease with stage 1 through stage 4 chronic kidney disease, or unspecified chronic kidney disease | CPT/HCPCS: 80053; 80061; 82306; 82607; 83036; 84443; 85025 ==

== ENCOUNTER → 2020-09-06 10:11 | Outpatient (BNVA) | payer MEDICARE, MEDICAID, SELFPAY | PROVIDERS: PCP Nurse Practitioner Family; Visit Provider Anesthesiology Pain Medicine | DX: M48.062 Spinal stenosis, lumbar region with neurogenic claudication (principal); M47.816 Spondylosis without myelopathy or radiculopathy, lumbar region; M51.17 Intervertebral disc disorders with radiculopathy, lumbosacral region; M48.00 Spinal stenosis, site unspecified | CPT/HCPCS: 99214 ==

== ENCOUNTER 2020-09-16 15:05 | Outpatient (CLI) | payer MEDICARE, MEDICAID, SELFPAY ==
--- NOTE | 2020-09-16 15:15 | MR_ITS ---
WS: [id number] MRI LUMBAR SPINE NONCONTRAST HISTORY: M48.062 - Spinal stenosis, lumbar region with neurogenic claudication COMPARISON: 12/02/2009 TECHNIQUE: Sagittal and axial multisequence imaging is submitted. Mild increase in thoracic kyphosis. 2 mm anterolisthesis of L4. No marrow edema or fractures. Disc spaces and vertebral body heights are well-preserved. Conus terminates normally at L1-2. L1-L2: Mild facet joint arthritis without stenosis. L2-L3: Mild bilateral facet joint arthritis without stenosis. L3-L4: Moderate ligamentum flavum hypertrophy and facet arthritis. Very mild encroachment upon the po sterior lateral thecal sac without stenosis. L4-L5: Mild annular disc bulging with moderate facet and ligamentum flavum hypertrophy. Mild bilatera l subarticular recess narrowing. There is mild encroachment upon the posterior lateral thecal sac and subarticular recesses. No severe stenosis. L5-S1: Shallow central disc protrusion and mild facet and ligamentum flavum hypertrophy. There may be very minimal encroachment upon the S1 nerve roots bilaterally with no displacement. Subcentimeter RIGHT renal cyst. MR/MR lumbar spine wo con* [id number] IMPRESSION: 1. L4 anterolisthesis by 2 mm. 2. Mild central and subarticular recess narrowing at L4-5 due to combination o f L4 anterolisthesis and facet joint arthritis. 3. Very mild encroachment upon the posterior lateral thecal sac at L3-4 due to facet disease. No severe stenosis. 4. Central disc protrusion at L5-S1 with mild encroachment but no displacement of the S1 nerve roots.
== END 2020-09-16 15:06 | disposition home or self-care (01) ==
LOC: RADSHAW 15:09
PROVIDERS: PCP Nurse Practitioner Family; Visit Provider Anesthesiology Pain Medicine
DX: M48.062 Spinal stenosis, lumbar region with neurogenic claudication (principal); M51.27 Other intervertebral disc displacement, lumbosacral region
CPT/HCPCS: 72148

== ENCOUNTER → 2020-09-20 09:09 | Outpatient (BNVA) | payer MEDICARE, MEDICAID, SELFPAY | PROVIDERS: PCP Nurse Practitioner Family; Visit Provider Orthopaedic Surgery | DX: M48.062 Spinal stenosis, lumbar region with neurogenic claudication (principal); M47.816 Spondylosis without myelopathy or radiculopathy, lumbar region | CPT/HCPCS: 72114 ==

== ENCOUNTER → 2020-09-24 11:25 | Outpatient (BNVA) | payer MEDICARE, MEDICAID, SELFPAY | PROVIDERS: PCP Nurse Practitioner Family; Visit Provider Nurse Practitioner Family | DX: M25.561 Pain in right knee (principal) | CPT/HCPCS: 73562 ==

== ENCOUNTER → 2020-09-30 13:19 | Outpatient (BNVA) | payer MEDICARE, MEDICAID, SELFPAY | PROVIDERS: PCP Nurse Practitioner Family; Visit Provider Internal Medicine Nephrology | DX: N18.30 Chronic kidney disease, stage 3 unspecified (principal) | CPT/HCPCS: 80069; 82043; 82310; 83970; 85025 ==

== ENCOUNTER → 2020-10-04 09:54 | Outpatient (BNVA) | payer MEDICARE, MEDICAID, SELFPAY | PROVIDERS: PCP Nurse Practitioner Family; Visit Provider Anesthesiology Pain Medicine | DX: G89.29 Other chronic pain (principal); M48.062 Spinal stenosis, lumbar region with neurogenic claudication; M47.816 Spondylosis without myelopathy or radiculopathy, lumbar region; M51.17 Intervertebral disc disorders with radiculopathy, lumbosacral region; Z79.899 Other long term (current) drug therapy | CPT/HCPCS: 99213 ==

== ENCOUNTER 2020-10-31 09:00 | Outpatient (CLI) | payer MEDICARE, MEDICAID, SELFPAY | END 2020-10-31 09:01 | LOC: OPS 06-11 10:26 | PROVIDERS: PCP Nurse Practitioner Family; Visit Provider Orthopaedic Surgery | DX: N18.30 Chronic kidney disease, stage 3 unspecified (principal); Z13.6 Encounter for screening for cardiovascular disorders | CPT/HCPCS: 80048; 85025; 93005 ==

== ENCOUNTER → 2020-11-05 10:28 | Outpatient (BNVA) | payer MEDICARE, MEDICAID, SELFPAY | PROVIDERS: PCP Nurse Practitioner Family; Visit Provider Orthopaedic Surgery | DX: Z20.828 Contact with and (suspected) exposure to other viral communicable diseases (principal); Z01.812 Encounter for preprocedural laboratory examination | CPT/HCPCS: 87635 ==

== ENCOUNTER 2020-11-11 08:53 | Observation (INO) | payer MEDICARE, MEDICAID, SELFPAY ==
--- NOTE | 2020-10-31 10:31 | ECG_ITS ---
[facility] Test Date: 2020-10-31 Pat Name: Debbie Garcia Department: Room: Gender: Female Administrative Program Specialist: : [id number] Requested By: Bib Yoon Order Number: [id number] Alethea MD: Johnnie Jones M.D. Measurements Intervals [place] Rate: 66 P: 37 ME: 151 QRS: -1 QRSD: 100 T: 25 QT: 375 QTc: 393 Interpretive Statements SINUS RHYTHM LOW QRS VOLTAGE IN PRECORDIAL LEADS [QRS DEFLECTION < 1.0 mV IN CHEST LEADS] Compared to ECG 05/31/2020 10:16:05 Myocardial infarct finding no longer present Electronically Signed On 10-31-2020 15:09:32 VENEER DRIER by Johnnie Jones M.D. [id number]
[2020-10-31 10:58] VITALS: BMI 30.5
[2020-10-31 11:32] LABS: Basophils % 0.4 %; Eosinophils # 0.6 10^3/uL (0.0-0.8); Eosinophils % 7.8 %; Hematocrit 38.3 % (37.0-47.0); Hemoglobin 12.1 g/dL (11.5-15.3); Lymphocytes # 1.9 10^3/uL (0.8-4.8); Mean Corpuscular HGB Conc 31.6 g/dL (30.0-36.0); Mean Corpuscular Hemoglobin 27.9 pg (28.0-34.0); Mean Corpuscular Volume 88.2 fL (81-99); Monocytes # 0.4 10^3/uL (0.2-0.9); Monocytes % 5.2 %; Neutrophils # 4.62 10^3/uL (1.8-7.7); Neutrophils % 61.2 %; Nucleated Red Blood Cells % 0 %; Platelet Count 312 10^3/cmm (130-400); Red Blood Count 4.34 10^6/uL (4.1-5.3); White Blood Count 7.6 10^3/uL (4.0-10.0)
--- NOTE | 2020-10-31 11:42 | ANES.PREANE2 ---
Pre-Anesthetic Assessment Pre-Anesthetic Assessment: Height/Weight: Height 1.63 m Weight 80.649 kg Preop Diagnosis: Osteoarthritis right knee Proposed Procedure: Operation Date: 11/11/20 12:20 Proposed Procedures p Total Knee Arthroplasty 00389 M17.11(Right) - Jon Ahuja MD Was Beta Rolan taken within 24 hours: Yes Social: Social History: No alcohol and No tobacco Exam: Pre-Anes Outpt Exam: alert, oriented x 3, clear to auscultation bilaterally and regular rate & rhythm Airway: Submandibular: WNL Cervical ROM: WNL MP: 2 Dentition: False Pulmonary: Pulmonary: None reported CV/HEM: CV/HEM: CAD, HTN, VT and Murmur Comments: : : Chronic renal Insufficiency Hepatic: Hepatic: None reported GI: GI: GERD Metabolic: Metabolic: DM, Morbid obesity and Thyroid Neuropsych: Neuropsych: Neuropathy Anesthetic Plan: ASA status: 3 Anesthesia: General and Regional (specify below) Other: Adductor blk Risk of > 500 ml blood loss (7ml/kg in children): No PFSH Anesthesia PFSH: Medical History Aortic stenosis Chest pain Chronic insomnia Chronic migraine Chronic pain of multiple joints CKD (chronic kidney disease) Depression Diabetes Diabetic neuropathy Dizziness Dyslipidemia Facet syndrome, lumbar Hyperlipemia Hypertension Hypothyroidism intermediate (current) use of opiate analgesic Myocardial infarction Obesity Pain management contract signed Renal osteodystrophy Sinusitis Surgical History History of total left hip replacement Hx of colonoscopy (~03/2020) recheck 10 yrs S/P appendectomy S/P bladder repair S/P cholecystectomy S/P hysterectomy S/P tonsillectomy Family History Brother Cancer CAD (coronary artery disease) Myocardial infarction Mother Cancer Father CAD (coronary artery disease) Myocardial infarction Son CAD (coronary artery disease) Social History Smoking and tobacco status: never smoked Second hand smoke exposure: No Alcohol intake: current Alcohol intake frequency: holidays/special occasions only Lives independently: Yes Household members: none Housing: Manufactured/Mobile home Marital status: Legally service: No Current occupational status: retired History of recent travel: No Current gender identity: Female Special shital needs: No Agree to transfusion: Yes Data Anesthesia CBC & Chem 7: 10/31/20 10:56 10/31/20 10:56 Other Labs: Laboratory Results - last 48 hr 10/31/20 10:56 WBC 7.6 RBC 4.34 Hgb 12.1 Hct 38.3 MCV 88.2 MCH 27.9 L MCHC 31.6 RDW 13.0 Plt Count 312 MPV 10.0 Neut % (Auto) 61.2 Lymph % (Auto) 25.0 [place] % (Auto) 5.2 Eos % (Auto) 7.8 Baso % (Auto) 0.4 Neut # (Auto) 4.62 Lymph # (Auto) 1.9 [place] # (Auto) 0.4 Eos # (Auto) 0.6 Baso # (Auto) 0.0 Nucleated RBC % (auto) 0 Nucleated RBCs # 0.0 Cardiac Studies: No Data to Display
[2020-10-31 11:54] LABS: Anion Gap 14.3 (5-19); Blood Urea Nitrogen 23 mg/dL (8-23); Calcium 9.6 mg/dL (8.5-10.5); Carbon Dioxide 26 mmol/L (22-29); Chloride 105 mmol/L (98-107); Glucose 110 mg/dL (65-115); Osmolality Calculated 296 mOsm/kg (285-295); Potassium 4.3 mmol/L (3.5-5.1); Sodium 141 mmol/L (136-145)
[2020-11-11] VITALS (35 sets, daily range): BP systolic 95–142; BP diastolic 41–79; PULSE 59–88; RESP 16–27; TEMP 36.3–36.9; O2SAT 92–100
[2020-11-11] MEDS: acetaminophen 500 mg Tablet 1000 MG PO ×2 (06:10→17:06)
[2020-11-11 06:11] LABS: Glucose Point of Care 137 mg/dL (70-110)
[2020-11-11] MEDS: CELEcoxib 200 mg Capsule 400 MG PO (06:11)
[2020-11-11] MEDS: gabapentin 300 mg Capsule PO ×2 (06:11→17:07)
[2020-11-11] MEDS: oxyCODONE 20 mg ER (12 HR) Tablet PO (06:11)
[2020-11-11] MEDS: sodium chloride 0.9% 1,000 ML 30 ML IV (06:13)
--- NOTE | 2020-11-11 06:48 | P.ANESUD_ITS ---
Pre-Anesthetic Update Pre-Anesthetic Assessment: Date of Surgery/Procedure: 11/11/20 Preop Abril gnosis: Osteoarthritis right knee Proposed Procedure: Operation Date: 11/11/20 07:00 Proposed Procedures p Total Knee Arthroplasty 65968 M17.11(Right) - Jon Ahuja MD Any changes to Pre-Anesthetic Assessment?: No Last Intake: Intake Last Liquid Date 11/11/20 Last Liquid Time 05:00 Last Solid Date 11/10/20 Last Solid Time 21:30 Labs Last 48hrs: Laboratory Results - last 48 hr 11/11/20 06:04 POC Glucose 137 H Vitals: Temperature 97.3 F L 11/11/20 05:59 Temperature Source Temporal Artery S can 11/11/20 05:59 Pulse Rate 71 11/11/20 05:59 Respiratory Rate 16 11/11/20 06:11 Respiratory Effort 11/11/20 06:11 Respiratory Depth Normal 11/11/20 06:11 Respiratory Patter n 11/11/20 06:11 Blood Pressure 142/62 11/11/20 05:59 Blood Pressure Emerald n 88 11/11/20 05:59 Pulse Oximetry 99 11/11/20 06:11 Oxygen Delivery Me thod 11/11/20 05:59 Exam: Pre-Anes Outpt Exam: alert, oriented x 3, clear to auscultation bilaterally and regular rate & rhythm Cardiac Studies: No Data to Display
--- NOTE | 2020-11-11 06:58 | W.PM.OPSFHP ---
Same Day Surgery H&P Indication for Procedure/HPI DATE OF PROCEDURE: November 11, 2020 CHIEF COMPLAINT/INDICATIONFOR SURGICAL PROCEDURE: Osteoarthritis left knee. Patient has failed conservative treatments including medications and injections. Is done well with left total knee arthroplasty. Here today for right total knee PREOP DIAGNOSIS: Osteoarthritis right knee PLANNED PROCEDRUE: Operation Date: 11/11/20 07:00 Proposed Procedures p Total Knee Arthroplasty 71993 M17.11(Right) - Jon Ahuja MD Medications/Allergies* Home Medications Medication Instructions Recorded Confirmed Type amlodipine 10 mg tablet 10 mg PO DAILY tab 11/08/19 11/11/20 History metoprolol tartrate 50 mg tablet 50 mg PO DAILY tab 11/08/19 11/11/20 History nitroglycerin 0.4 mg sublingual 0.4 mg SUBLINGUAL Q5M PRN 11/08/19 10/31/20 History tablet potassium chloride 10 mEq 10 meq PO DAILY 01/04/20 11/11/20 History tablet,extended release spironolactone 25 mg tablet 25 mg PO BID 01/04/20 11/11/20 History biotin 5,000 mcg sublingual tablet 5,000 mcg SUBLINGUAL DAILY 03/28/20 11/11/20 History insulin aspart U-100 [Novolog 6 unit SUBCUT DIRECTED 05/31/20 11/11/20 History Flexpen U-100 Insulin] levothyroxine 50 mcg tablet 50 mcg PO DAILY 09/06/20 11/11/20 History insulin glargine [Lantus U-100 10 unit SUBCUT BEDTIME 10/31/20 11/11/20 History Insulin] pantoprazole 40 mg PO BID 10/31/20 11/11/20 History paroxetine HCl 10 mg PO DAILY 10/31/20 11/11/20 History trazodone 50 mg PO BEDTIME 10/31/20 11/11/20 History Allergies/Adverse Reactions Allergy/AdvReac Type Severity Reaction Status Date / Time niacin Allergy Severe ALGY-Rash Verified 10/09/20 13:46 Current Medications: Generic Name Dose Route Start Last Admin Trade Name Freq PRN Reason Stop Dose Admin Sodium Chloride 1,000 mls @ 30 mls/hr 11/11/20 05:45 11/11/20 06:13 Sodium Chloride 0.9% IV 11/12/20 05:44 30 mls/hr .Q24H BERYL Administration Pertinent History/Comorbid Conditions* Medical History (Updated 09/24/20 @ 13:32 by VU Mae) Aortic stenosis Chest pain Chronic insomnia Chronic migraine Chronic pain of multiple joints CKD (chronic kidney disease) Depression Diabetes Diabetic neuropathy Dizziness Dyslipidemia Facet syndrome, lumbar Hyperlipemia Hypertension 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 Myocardial infarction Obesity Pain management contract signed Renal osteodystrophy Sinusitis Surgical History (Updated 09/24/20 @ 13:31 by VU Mae) History of total left hip replacement Hx of colonoscopy (~03/2020) recheck 10 yrs S/P appendectomy S/P bladder repair S/P cholecystectomy S/P hysterectomy S/P tonsillectomy Family History (Updated 11/08/19 @ 16:18 by Dayami Macario RN) CAD (coronary artery disease) Brother Father Son Myocardial infarction Brother Father Cancer Brother Mother Social History Smoking and tobacco status: never smoked Second hand smoke exposure: No Alcohol intake: current Alcohol intake frequency: holidays/special occasions only Lives independently: Yes Household members: none Housing: Manufactured/Mobile home Marital status: Legally service: No Current occupational status: retired History of recent travel: No Current gender identity: Female Special shital needs: No Agree to transfusion: Yes Pertinent Exam Findings alert, oriented x 3, clear to auscultation bilaterally, regular rate & rhythm and operative site marked Recommendations Surgery/Procedure today Coding Level of Care Code Acute Hydrochloric Acid Operator for Halley Sweet
--- NOTE | 2020-11-11 07:29 | ANES.PROC ---
Anesthesia Procedures Procedure/Date: 11/11/20 Nerve Block ^: Nerve Block 1: Main Anesthesia: general anesthesia Time Out Performed: Yes Consent: requested by attending/covering physician, from patient, risks and benefits reviewed and patient agrees to proceed Nerve block location: adductor canal Anesthesia monitors applied: pulse oximetry, EKG, BP cuff and oxygen Nerve block position: supine Anesthetic Used: ropivicaine 0.5% Amount of anesthesia used (mL): 20 Ultrasound used to: recognize landmarks Nerve Stimulator Used?: No Interscalene/Femoral BLK: 4 stimuplex 21 g needle used for position and inplane approach and visualize local anesthetic spread Injection: neg aspiration of heme Patient Tolerated Procedure: well and no complications Complications: none
[2020-11-11] MEDS: tranexamic acid 1,000 mg/10mL SDV 1000 MG IRRIGATION (07:43)
[2020-11-11] MEDS: EPINEPHrine 1 mg/mL INJ XX (07:43)
[2020-11-11] MEDS: ketorolac 30 mg/mL INJ IM (07:44)
--- NOTE | 2020-11-11 09:10 | PM.OP ---
Operative Report Date of procedure: November 11, 2020 Pre-op Diagnosis: Osteoarthritis right knee Post-op diagnosis: same Post-op Findings: Osteoarthritis right knee Procedure Done: Right total knee Ezra Implants: [place] total knee arthroplasty components were used includin) Size 3 triathalon cruciate retaining femoral component 2) Size 3 Tritanium tibial component 3) 32 mm /10 mm thickness Tritanium asymetric patella 4) Size 3/9 mm thickness CR tibial bearing insert Pathology: none sent Surgeon: Jon Ahuja Anesthesia: Nerve Block (Spinal, adductor canal block) Estimated blood loss (mL): 150 Findings: The patient had eburnated bone over the medial femoral condyle medial tibial plateau patella and trochlea Condition: stable Disposition: PACU Procedure: The patient was taken to the operating room. Patient was given 1 g of tranexamic acid . The above anesthesia provided by the anesthesia service. A timeout was performed. The patient was prepped and draped in the usual fashion with the lower extremity exposed. A anterior incision was made, midline, from a point proximal to the patella to the distal tibial tubercle. The knee was entered through a medial parapatellar approach. The patella could be displaced laterally and the knee flexed. The patellar fat pad was resected to provide better visibility. Retractors were placed medially and laterally adjacent to the tibial plateau. The femoral canal was drilled in line with the longitudinal axis of the femur. Intramedullary femoral guide for used to make a distal femoral cut in 5 degrees of valgus, resecting 8 mm from the more prominent condyle. Next the extra medullary tibial guide was placed in alignment with the longitudinal axis of the tibia. The cutting guides were set to remove just over 9 mm from the high tibial plateau. The proximal tibia was then cut. The femoral measuring guide was then placed over the distal femur. Rotation was verified checking the relationship of the guide to the condyle and the trochlear groove. The femur was measured and cut for the desired femoral component. The desired tibial baseplate was then chosen. A trial reduction with the femur tibial baseplate and polyethylene was done, assuring that the knee was stable throughout full motion. Ligament balancing involve nothing more than a release of the deep medial collateral ligament.The tibia was prepared for the tibial baseplate. Patellar thickness was then measured. The patella was cut removing articular cartilage and prepared for appropriate size patellar button. All surfaces were cleaned with pulsatile lavage. The femur tibia and patella were then press-fit into place. The posterior capsule and collateral ligaments were then injected with a solution of 100 mL of 0.2% ropivacaine, 1 mL of a 1:1000 epinephrine solution, and 30 mg of Toradol. Final polyethylene component was then snapped into place into the tibia. 2 grams of tranexamic acid were applied to the wound. The tourniquet was deflated. The tranxanemic acid was left contact with the knee for 5 minutes before the knee was irrigated with saline. The extensor retinaculum was closed with a running 1 Stratafix.. The subcutaneous tissues were closed with 2-0 Vicryl and the skin was closed with a running 3-0 Stratafix. The wound was covered with a Dermabond Prinio dressing. It was covered with 4xrs and a compressive Tubigauae was applied. The patient was taken to recovery room in stable condition.
[2020-11-11 09:13] LABS: Glucose Point of Care 191 mg/dL (70-110)
--- NOTE | 2020-11-11 09:19 | XRR_ITS ---
PROCEDURE INFORMATION: Exam: XR Right Knee Exam date and time: 11/11/2020 9:23 AM Age: 70 years old Clinical indication: Device placement; Joint replacement hardware; Prior surgery; Surgery date: Post-operative (0-2 days); Additional info: Right total knee arthroplasty TECHNIQUE: Imaging protocol: XR Right knee. Views: 1 or 2 views. COMPARISON: CR XR knee RT 3V* [id number] 09/24/2020 11:32 AM FINDINGS: Bones/joints: Recent insertion of a total knee joint prosthesis. Gas is present in the soft tissues from the recent surgery. No fracture is seen. Overall position and alignment appears satisfactory. Soft tissues: Normal. XR/XR knee RT 1-2V [id number] IMPRESSION: Satisfactory postoperative appearance of the total knee prosthesis.
--- NOTE | 2020-11-11 09:25 | SUR.PHASEI ---
PT AWAKE ALERT ON RA PT ABLE TO MOVES TOES OF RT FOOT TO COOMMAND RT KNEE DRESSING D/I FIRST ICE IN PLACE PULSE TO RT FOOT STRONG AND REGULAR.BILAT FOOT PUMPS ON AND WORKING , IV PATENT. X RAY HERE, HOLDING PT FOR FLOOR BED.
[2020-11-11] MEDS: sodium chloride 0.9% 1,000 ML 100 ML IV ×3 (09:35→20:56)
[2020-11-11] MEDS: oxyCODONE 5 mg IR Tab/Cap PO ×2 (09:47→14:44)
--- NOTE | 2020-11-11 10:03 | SUR.PHASEI ---
4811 PT MOVED TO ISOLATION ROOM 12 FOR PRIVACY WHILE WAITING PT C/O OF PAIN SEE PO PAIN MED GIVEN PT EATING DIET PUDDING AND CRACKERS AND DIET SODA. PT WITHOUT COMPLAINT, PT WITH CALL LIGHT WITHIN REACH, PT TEXTING FAMILY ON HER CELL PHONE, PT IN HOLDING WAITING TO GO TO FLOOR .
--- NOTE | 2020-11-11 10:22 | ANE.PACU2 ---
Inpatient post-anesthesia follow up: Airway intact: Yes Vital signs: Temperature 98 F Pulse Rate 66 Respiratory Rate 18 Blood Pressure 139/64 Pulse Oximetry 97 Oxygen Delivery Me thod Room Air Oxygen Flow Rate 8 Fraction of Inspir ed Oxygen Hydration adequate: Yes Nausea and vomiting: No Pain level: 1 Mental status: Baseline
--- NOTE | 2020-11-11 11:47 | SUR.PHASEI ---
INSULIN 6 UNITS SUBQUE GIVEN PER SS ORDERS ON TRANSFER ORDERS REGULAR INSULIN ASPART. PT AWAKE HAS ATE CRACKERS AND PUDDING WAITING FOR TRAY FROM DIETARY.
--- NOTE | 2020-11-11 13:20 | SUR.PHASEI ---
PT REMAINS IN OPS 12 BED IN HOLDING FOR FLOOR, PT RESTING WITH NO COMPLAINTS CALL LIGHT WITHIN REACH, BED DOWN AND LOCKED.
[2020-11-11 17:02] LABS: Glucose Point of Care 247 mg/dL (70-110)
[2020-11-11] MEDS: CELEcoxib 200 mg Capsule PO (17:06)
[2020-11-11] MEDS: pantoprazole DR 40 mg Tablet PO (17:07)
[2020-11-11] MEDS: spironolactone 25 mg Tablet PO (17:08)
[2020-11-11 20:42] LABS: Glucose Point of Care 196 mg/dL (70-110)
[2020-11-11] MEDS: topiramate 100 mg Tablet PO (20:46)
[2020-11-11] MEDS: atorvastatin 40 mg Tablet 80 MG PO (20:46)
[2020-11-11] MEDS: insulin glargine 100 units/1 mL 10 UNIT SUBCUT (20:46)
[2020-11-11] MEDS: hyDRALAzine 50 mg Tablet PO (20:46)
[2020-11-11] MEDS: trazodone 50 mg Tablet PO (20:46)
[2020-11-12 02:01] LABS: Hemoglobin 9.7 g/dL (11.5-15.3)
[2020-11-12 02:15] VITALS: BP 109/69; PULSE 82; RESP 18; TEMP 36.4; O2SAT 97
[2020-11-12] MEDS: acetaminophen 500 mg Tablet 1000 MG PO ×2 (02:43→07:59)
[2020-11-12 03:59] VITALS: RESP 16
[2020-11-12] MEDS: oxyCODONE 5 mg IR Tab/Cap PO (03:59)
[2020-11-12 04:00] VITALS: BP 134/73; PULSE 62; RESP 18; TEMP 37.3; O2SAT 94
[2020-11-12 06:26] LABS: Glucose Point of Care 128 mg/dL (70-110)
[2020-11-12] MEDS: CELEcoxib 200 mg Capsule PO (06:31)
[2020-11-12 07:20] VITALS: BP 108/62; PULSE 60; RESP 16; TEMP 36.8; O2SAT 95
--- NOTE | 2020-11-12 07:45 | PM.DCS ---
Discharge Providers Date of Admission: 11/11/20 08:53 Date of Discharge: November 12, 2020 Attending Provider at Admission: Jon Ahuja MD Attending Provider at Discharge: Jon Ahuja MD Primary Care Provider: VU Mae Diagnoses at Discharge Discharge Diagnosis (1) Status post right knee replacement: Status: Acute (2) Osteoarthritis of right knee: Status: Acute (3) Diabetes: Status: Acute Qualifiers: Diabetes mellitus type: type 2 Diabetes mellitus exterminator insulin use: with intermediate use Diabetes mellitus complication status: with hyperglycemia Qualified Code(s): E11.65 - Type 2 diabetes mellitus with hyperglycemia; Z79.4 - skilled nursing (current) use of insulin Reason for Visit Reason for Visit: Primary osteoarthritis right knee Hospital Course Hospital Course The patient was admitted for an elective right total knee arthroplasty. Postoperatively she did well. She remained hemodynamically stable. She is begun on aspirin and foot pumps for DVT prophylaxis. By the first postoperative day she was doing well and stable for discharge. Physical Exam Narrative: EXAM NARRATIVE: On the day of discharge his knee incision was clean. They had no drainage. There is minimal swelling in the thigh and knee and the calf. No distal neurovascular deficits were noted Discharge Data Data Completed and Pending: Completed Studies During Hospitalization Category Date Time Status XR knee RT 1-2V 7 [id number] Routine Exams 11/11/20 09:19 Completed Labs from last 24 hours 11/12/20 11/12/20 11/11/20 06:13 01:39 20:40 Hgb 9.7 L POC Glucose 128 H 196 H 11/11/20 11/11/20 16:48 09:09 Hgb POC Glucose 247 H 191 H Vitals: Last Vital Signs Temp 98.2 F 11/12/20 07:20 Pulse 60 11/12/20 07:20 Resp 16 11/12/20 07:20 BP 108/62 11/12/20 07:20 Pulse Ox 95 11/12/20 07:20 Discharge Plan Discharge Patient Disposition: Home Condition: Stable Prescriptions: New oxycodone 5 mg Tablet 5 mg PO Q4H PRN (Reason: Moderate Pain) 7 Days Qty: 40 RF: 0 celecoxib 200 mg Capsule 200 mg PO Q12H 15 Days Qty: 30 RF: 0 aspirin 325 mg Tablet,Delayed Release (Dr/Ec) 325 mg PO DAILY 30 Days Qty: 30 RF: 0 gabapentin 300 mg Capsule 300 mg PO BID 7 Days Qty: 14 RF: 0 Continued nitroglycerin [Nitrostat] 0.4 mg tablet, sublingual 0.4 mg SUBLINGUAL Q5M PRN (Reason: Angina) RF: 0 amlodipine 10 mg tablet 10 mg PO DAILY RF: 0 metoprolol tartrate 50 mg tablet 50 mg PO DAILY RF: 0 tizanidine 2 mg tablet 2 mg PO BID PRN (Reason: muscle spasticity) Qty: 60 RF: 1 spironolactone 25 mg tablet 25 mg PO BID RF: 0 potassium chloride 10 mEq tablet extended release 10 meq PO DAILY RF: 0 biotin 5,000 mcg tablet, sublingual 5,000 mcg SUBLINGUAL DAILY RF: 0 (DME) blood-glucose meter [Blood Glucose Monitoring] Kit See Rx Instructions .ROUTE .MEDSUPPLY Qty: 1 RF: 0 (DME) Blood Glucose Test Strip See Rx Instructions .ROUTE .MEDSUPPLY Qty: 100 RF: 11 levothyroxine [Synthroid] 50 mcg tablet 50 mcg PO DAILY RF: 0 Victoza 2-Angel Luis 0.6 mg/0.1 mL (18 mg/3 mL) pen injector 1.8 mg SUBCUT Q24H Qty: 6 RF: 5 hydralazine 50 mg tablet 50 mg PO TID 90 Days Qty: 270 RF: 3 sumatriptan succinate 25 mg tablet 25 mg PO .PRN MDD 50mg PRN (Reason: migraine headache) Qty: 9 RF: 3 chlorthalidone 25 mg tablet 25 mg PO DAILY 90 Days Qty: 90 RF: 3 (DME) pen needle, diabetic [Pen Needle] 32 gauge x 5/32 needle See Rx Instructions .ROUTE .MEDSUPPLY Qty: 100 RF: 3 (DME) pen needle, diabetic [Sure-Fine Pen [place]] 31 gauge x 5/16 needle See Rx Instructions .ROUTE .MEDSUPPLY Qty: 50 RF: 6 (DME) insulin syringe-needle U-100 [BD Insulin Syringe Ultra-Fine] 1 mL 31 gauge x 5/16 syringe See Rx Instructions .ROUTE .MEDSUPPLY Qty: 100 RF: 4 topiramate 100 mg tablet See Rx Instructions PO TID Qty: 90 RF: 4 (DME) lancing device with lancets Kit See Rx Instructions .ROUTE .MEDSUPPLY Qty: 100 RF: 3 ergocalciferol (vitamin D2) 1,250 mcg (50,000 unit) capsule See Rx Instructions .ROUTE .COMPLEX Qty: 4 RF: 0 atorvastatin 80 mg tablet 80 mg PO BEDTIME Qty: 30 RF: 2 insulin aspart U-100 [Novolog Flexpen U-100 Insulin] 100 unit/mL (3 mL) insulin pen 6 unit SUBCUT DIRECTED RF: 0 paroxetine HCl 10 mg Tablet 10 mg PO DAILY RF: 0 pantoprazole 40 mg Tablet,Delayed Release (Dr/Ec) 40 mg PO BID RF: 0 Lantus U-100 Insulin 100 unit/mL solution 10 unit SUBCUT BEDTIME RF: 0 trazodone 50 mg tablet 50 mg PO BEDTIME RF: 0 Discharge Orders: Discharge Order (Routine); Ordered 11/12/20 Ordered By: Jon Ahuja Referrals: Jon Ahuja MD [Physician] - 2 weeks Discharge Diet: Advance as tolerated Discharge Activity: Limit activity as instructed Activity Restrictions/Additional Instructions: Discontinue knee dressing in 48 hours. Replaced dressings as needed. Okay to begin showering in 48 hours. Keep Tubigauze sleeve in place for swelling Apply FirstIce up to 20 min/hr for pain and swelling Take Celebrex twice a day for the next 15 days for pain , discontinue other anti-inflammatories Take Neurontin twice a day for 7 days. Take Tylenol 325mg (up to 3 tabs) 3 times a day for mild pain take oxycodone for breakthrough pain. Exercises per physical therapy. May weight-bear as tolerated on total knee arthroplasty Discharge Attestations Time Spent in Discharge Care*: other Quality Metrics Clinical Quality Measures During this hospital stay, did patient experience: None Coding Level of Care Code Acute Electronics Mechanic for g Fwd Diagnoses Status post right knee replacement Z96.651 Osteoarthritis of right knee M17.11 Diabetes E11.65; Z79.4 Diabetes mellitus type: type 2 Diabetes mellitus exterminator insulin use: with exterminator use Diabetes mellitus complication status: with hyperglycemia
[2020-11-12] MEDS: aspirin 325 mg EC Tablet PO (07:58)
[2020-11-12] MEDS: hyDRALAzine 50 mg Tablet PO (07:58)
[2020-11-12] MEDS: spironolactone 25 mg Tablet PO (07:58)
[2020-11-12] MEDS: chlorthalidone 25 mg Tablet PO (07:58)
[2020-11-12] MEDS: levothyroxine 50 mcg Tablet PO (07:59)
[2020-11-12] MEDS: amlodipine 10 mg Tablet PO (07:59)
[2020-11-12] MEDS: sennosides-docusate Tablet 2 TAB PO (07:59)
[2020-11-12] MEDS: metoprolol tartrate 50 mg Tablet PO (07:59)
[2020-11-12] MEDS: PARoxetine 20 mg Tablet 10 MG PO (08:00)
[2020-11-12] MEDS: pantoprazole DR 40 mg Tablet PO (08:00)
[2020-11-12] MEDS: potassium chloride ER 10 mEq Tablet PO (08:00)
[2020-11-12] MEDS: gabapentin 300 mg Capsule PO (08:00)
[2020-11-12] MEDS: topiramate 100 mg Tablet 150 MG PO (08:05)
[2020-11-12 08:55] VITALS: BP 108/62; PULSE 60; RESP 16; TEMP 36.8; O2SAT 95
[2020-11-12 09:23] VITALS: PULSE 60; RESP 18; O2SAT 94
--- NOTE | 2020-11-12 10:48 | PC.OT ---
OT note: Pt already dressed and waiting on ride home. She reported she has someone to assist her with bathing and she has the adaptive equipment she needs at home for ADLs and has no further needs at this time. This is her second TKA and she has equipment and set up available from prior surgery.
== END 2020-11-12 11:09 | disposition home or self-care (01) ==
LOC: MEDSURG 14:08
PROVIDERS: Anesthesiology; Admitting Provider Orthopaedic Surgery; PCP Nurse Practitioner Family; Visit Provider Orthopaedic Surgery
PROC: (CPT 27447; principal; 2020-11-11 07:00)
DX: M17.11 Unilateral primary osteoarthritis, right knee (principal); E11.65 Type 2 diabetes mellitus with hyperglycemia; Z79.4 Long term (current) use of insulin; E11.22 Type 2 diabetes mellitus with diabetic chronic kidney disease; I12.9 Hypertensive chronic kidney disease with stage 1 through stage 4 chronic kidney disease, or unspecified chronic kidney disease; N18.9 Chronic kidney disease, unspecified; E78.5 Hyperlipidemia, unspecified; E03.9 Hypothyroidism, unspecified; I25.2 Old myocardial infarction; E66.9 Obesity, unspecified; Z68.30 Body mass index [BMI] 30.0-30.9, adult; Z79.891 Long term (current) use of opiate analgesic; I25.10 Atherosclerotic heart disease of native coronary artery without angina pectoris
CPT/HCPCS: 27447; 12345; 36415; 36416; 64447; 73560; 80048; 82962; 85018; 85025; 96361; 96365; 96367; 96372; 97110; 97116; 97161; 97530; C1776; G0378; J0171; J0690; J1580; J1815 ×2; J1885; J2370; J2405; J2704; J2710; J2795; J3010; J3490; J7030

== ENCOUNTER → 2021-01-07 11:25 | Outpatient (BNVA) | payer MEDICARE, MEDICAID, SELFPAY | PROVIDERS: PCP Nurse Practitioner Family; Visit Provider Orthopaedic Surgery | DX: Z48.89 Encounter for other specified surgical aftercare (principal); Z96.651 Presence of right artificial knee joint | CPT/HCPCS: 73560; 73565 ==

== ENCOUNTER → 2021-03-05 16:22 | Outpatient (BNVA) | payer MEDICARE, MEDICAID, SELFPAY | PROVIDERS: PCP Nurse Practitioner Family; Visit Provider Nurse Practitioner Family | DX: E11.65 Type 2 diabetes mellitus with hyperglycemia (principal); Z79.4 Long term (current) use of insulin; N18.30 Chronic kidney disease, stage 3 unspecified; G47.00 Insomnia, unspecified; E78.5 Hyperlipidemia, unspecified; E55.9 Vitamin D deficiency, unspecified; R53.83 Other fatigue; J32.9 Chronic sinusitis, unspecified; Z68.26 Body mass index [BMI] 26.0-26.9, adult; I12.9 Hypertensive chronic kidney disease with stage 1 through stage 4 chronic kidney disease, or unspecified chronic kidney disease; E11.22 Type 2 diabetes mellitus with diabetic chronic kidney disease | CPT/HCPCS: 80053; 80061; 82043; 82306; 82607; 83036; 84443; 85025 ==

== ENCOUNTER → 2021-03-25 09:54 | Outpatient (BNVA) | payer MEDICARE, MEDICAID, SELFPAY | PROVIDERS: PCP Nurse Practitioner Family; Visit Provider Internal Medicine Nephrology | DX: N18.30 Chronic kidney disease, stage 3 unspecified (principal); E55.9 Vitamin D deficiency, unspecified | CPT/HCPCS: 80069; 82043; 82306; 82310; 83970; 85025 ==

== ENCOUNTER 2021-05-07 08:42 | Outpatient (CLI) | payer MEDICARE, MEDICAID, SELFPAY ==
--- NOTE | 2021-05-07 08:48 | MM_ITS ---
WS: [id number] BILATERAL DIGITAL SCREENING MAMMOGRAPHY WITH CAD CLINICAL INFORMATION: SCREENING HISTORY: Screening mammogram. No current complaints. COMPARISON: January 16, 2020 TECHNIQUE: Bilateral CC and MLO views. FINDINGS: Scattered fibroglandular densities bilaterally. Punctate and lucent centered calcifications. Vascular calcifications. No suspicious focal mass, asymmetry, calcifications, or architectural distortion. No evidence of malignancy. MM/[place] [id number] IMPRESSION: BI-RADS: 2-Benign FOLLOW UP: 1 Year Follow-up Recommend return to annual screening mammography.
== END 2021-05-07 08:43 | disposition home or self-care (01) ==
LOC: RADSHAW 08:46
PROVIDERS: PCP Nurse Practitioner Family; Visit Provider Nurse Practitioner Family
DX: Z12.31 Encounter for screening mammogram for malignant neoplasm of breast (principal)
CPT/HCPCS: 77067

== ENCOUNTER → 2021-06-30 12:54 | Outpatient (BNVA) | payer MEDICARE, MEDICAID, SELFPAY | PROVIDERS: PCP Nurse Practitioner Family; Visit Provider Specialist | DX: G43.709 Chronic migraine without aura, not intractable, without status migrainosus (principal); R26.81 Unsteadiness on feet | CPT/HCPCS: 99214 ==

== ENCOUNTER → 2021-08-05 17:00 | Outpatient (BNVA) | payer MEDICARE, MEDICAID, SELFPAY | PROVIDERS: PCP Nurse Practitioner Family; Visit Provider Nurse Practitioner Family | DX: M19.011 Primary osteoarthritis, right shoulder (principal) | CPT/HCPCS: 73030 ==

== ENCOUNTER 2021-08-13 09:05 | Outpatient (CLI) | payer MEDICARE, MEDICAID, SELFPAY ==
--- NOTE | 2021-08-13 09:20 | MR_ITS ---
WS: [id number] MRI RIGHT SHOULDER NONCONTRAST TECHNIQUE: Sagittal T2, coronal T1, T2 and proton density imaging. Axial gradient PDE imaging. CLINICAL INFORMATION: PAIN IN RIGHT SHOULDER COMPARISON: None. FINDINGS: Mild hypertrophic changes AC joint. Space. Moderate degenerative narrowing glenohumeral joint. Small amount of subacromial/subdeltoid fluid. Edema at the AC joint with slight subacromial spurring. Impin gement on the distal supraspinatus with a small insertional tear measuring 10-11 mm. Tiny undersurfac e tear in the mid supraspinatus tendon. Chronic thinning of the distal supraspinatus. Calcific tendin itis distal supraspinatus. Normal infraspinatus. Tiny insertional tear at the infraspinatus insertion. No full-thickness tears. Normal teres minor. Normal subscapularis. Biceps tendon is not visualized in the bicipital groove lik renato chronically torn. Chronic thinning of the distal subscapularis otherwise intact. Normal bone adonay ow signal in the glenoid. Degenerative fraying glenoid labrum. MR/MR shoulder RT wo con* [id number] IMPRESSION: 1. Moderate degenerative arthritis AC joint with hypertrophic spurring and tanvi ma. Subacromial spurring with impingement on the distal supraspinatus. 2. Insertional tear distal supraspinatus measuring 10 to 11 mm with fluid sign al. 3. Chronic thinning of the distal supraspinatus with calcific tendinopathy. Ad ditional tiny undersurface tear involving the mid supraspinatus tendon at the l evel of the mid humeral head 4. Tiny insertional tear at the infraspinatus insertion. 5. Rotator cuff is otherwise intact. 6. Biceps tendon is absent from the bicipital groove likely chronically torn. 7. Glenoid labrum appears grossly normal. 8. Normal bone marrow signal in the humerus and glenoid.
== END 2021-08-13 09:06 | disposition home or self-care (01) ==
PROVIDERS: PCP Nurse Practitioner Family; Visit Provider Nurse Practitioner Family
DX: M25.511 Pain in right shoulder (principal); M19.011 Primary osteoarthritis, right shoulder; M77.8 Other enthesopathies, not elsewhere classified; M25.80 Other specified joint disorders, unspecified joint; M75.101 Unspecified rotator cuff tear or rupture of right shoulder, not specified as traumatic; M75.31 Calcific tendinitis of right shoulder
CPT/HCPCS: 73221

== ENCOUNTER → 2021-09-24 12:00 | Outpatient (BNVA) | payer MEDICARE, MEDICAID, SELFPAY | PROVIDERS: PCP Nurse Practitioner Family; Visit Provider Nurse Practitioner Family | DX: E11.65 Type 2 diabetes mellitus with hyperglycemia (principal); Z79.4 Long term (current) use of insulin | CPT/HCPCS: 80053; 80061; 83036; 84443; 85025 ==

== ENCOUNTER → 2021-10-03 15:08 | Outpatient (BNVA) | payer MEDICARE, MEDICAID, SELFPAY | PROVIDERS: PCP Nurse Practitioner Family; Visit Provider Internal Medicine Pulmonary Disease | DX: Z20.822 Contact with and (suspected) exposure to COVID-19 (principal) | CPT/HCPCS: 87635 ==

== ENCOUNTER 2021-10-09 05:41 | Day surgery (SDC) | payer MEDICARE, MEDICAID, SELFPAY ==
[2021-10-09] VITALS (8 sets, daily range): BP systolic 167–179; BP diastolic 54–74; PULSE 57–79; RESP 12–16; TEMP 36.1–36.6; O2SAT 95–99
[2021-10-09] MEDS: sodium chloride 0.9% 1,000 ML 30 ML IV (06:20)
[2021-10-09] MEDS: fentaNYL 50 mcg/mL INJ 2mL 100 MCG IVP (06:25)
[2021-10-09] MEDS: midazolam 1 mg/mL INJ 2 mL 2 MG IVP (06:25)
[2021-10-09] MEDS: acetaminophen 500 mg Tablet 1000 MG PO (06:26)
[2021-10-09 06:27] LABS: Glucose Point of Care 207 mg/dL (70-110)
--- NOTE | 2021-10-09 06:40 | ANES.PREANE2 ---
Pre-Anesthetic Assessment Pre-Anesthetic Assessment: Height/Weight: Height 1.63 m Weight 79.379 kg Temp Pulse Resp BP Pulse Ox 98 F 79 16 167/74 98 10/09/21 06:09 10/09/21 06:09 10/09/21 06:09 10/09/21 06:09 10/09/21 06:09 Preop Diagnosis: Rotator cuff tear, Acromioclavicular arthritis right shoulder Proposed Procedure: Operation Date: 10/09/21 07:00 Proposed Procedures p Shoulder Arthroscopy 34288/M75.101(Right) - Jon Ahuja MD s Rotator Cuff Repair(Right) - Jon Ahuja MD Was Beta Rolan taken within 24 hours: Yes Was Clonidine taken within 24 hours: N/A Last intake: Intake Last Liquid Date 10/08/21 Last Liquid Time 18:20 Last Solid Date 10/08/21 Last Solid Time 18:20 Social: Social History: No alcohol and No tobacco Exam: Pre-Anes Outpt Exam: alert, oriented x 3, clear to auscultation bilaterally and regular rate & rhythm Airway: Submandibular: WNL Cervical ROM: WNL MP: 2 Pulmonary: Pulmonary: None reported CV/HEM: CV/HEM: CAD and HTN : : None reported Hepatic: Hepatic: None reported GI: GI: None reported Metabolic: Metabolic: DM Musc/skel: Musc/skel: None reported Neuropsych: Neuropsych: None reported Anesthetic Plan: ASA status: 3 Anesthesia: Anesthesia Evaluation and Regional (specify below) (Right interscalene nerve block) PFSH Anesthesia PFSH: Medical History Aortic stenosis Chest pain Chronic insomnia Chronic migraine Chronic pain of multiple joints CKD (chronic kidney disease) Depression Diabetes Diabetic neuropathy Dizziness Dyslipidemia Facet syndrome, lumbar Hyperlipemia Hypertension 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 Myocardial infarction Obesity Pain management contract signed Renal osteodystrophy Sinusitis Surgical History History of total left hip replacement Hx of colonoscopy (~03/2020) recheck 10 yrs S/P appendectomy S/P bladder repair S/P cholecystectomy S/P hysterectomy S/P tonsillectomy Status post left knee replacement Family History Brother Cancer CAD (coronary artery disease) Myocardial infarction Mother Cancer Father CAD (coronary artery disease) Myocardial infarction Son CAD (coronary artery disease) Social History Second hand smoke exposure: No Alcohol intake: current Alcohol intake frequency: holidays/special occasions only Lives independently: Yes Household members: none Housing: Manufactured/Mobile home Marital status: Legally service: No Current occupational status: retired History of recent travel: No Current gender identity: Female Special shital needs: No Agree to transfusion: Yes Data Anesthesia Other Labs: Laboratory Results - last 48 hr 10/09/21 06:19 POC Glucose 207 H Cardiac Studies: No Data to Display
--- NOTE | 2021-10-09 06:44 | ANES.PROC ---
Anesthesia Procedures Procedure/Date: 10/09/21 Nerve Block ^: Nerve Block 1: Main Anesthesia: general anesthesia Time Out Performed: Yes Consent: requested by attending/covering physician, risks and benefits reviewed and patient agrees to proceed Nerve block location: interscalene Anesthesia monitors applied: pulse oximetry and BP cuff Nerve block position: supine Anesthetic Used: ropivicaine 0.5% Amount of anesthesia used (mL): 30 Nerve Stimulator Used?: Yes Interscalene/Femoral BLK: 2 stimuplex 22 g needle used for position and inplane approach Injection: neg aspiration of heme Patient Tolerated Procedure: well and no complications Complications: none
--- NOTE | 2021-10-09 06:45 | W.PM.OPSUD ---
Surgery/Procedure H&P Update DATE OF PROCEDURE: October 09, 2021 DATE H&P PERFORMED: 09/17/21 H&P UPDATE INFORMATION: I have reviewed H&P completed within last 30 days PREOP DIAGNOSIS: Rotator cuff tear, Acromioclavicular arthritis right shoulder PLANNED PROCEDURE: Operation Date: 10/09/21 07:00 Proposed Procedures p Shoulder Arthroscopy 80130/M75.101(Right) - Jon Ahuja MD s Rotator Cuff Repair(Right) - Jon Ahuja MD
--- NOTE | 2021-10-09 09:00 | PM.OP ---
Operative Report Date of procedure: October 09, 2021 Pre-op Diagnosis: Rotator cuff tear, Impingement, Acromioclavicular arthritis right shoulder Post-op diagnosis: same Post-op Findings: Same Procedure Done: Arthroscopic repair rotator cuff, arthroscopic subacromial decompression, arthroscopic distal clavicle excision right shoulder Implants: Matson [employer] Nephew Helicoil 4.5 mm anchors x2, 5.5 mm knotless anchor x1 Pathology: none sent Anesthesia: General and Nerve Block (Interscalene block) Estimated blood loss (mL): 10 Complications: The patient had a full-thickness tear of the central supraspinatus tendon approximately a centimeter half from anterior to posterior with a centimeter and half of tendinous retraction. She had prominent anterior spurring of her acromion. She had enlargement and degenerative changes of the distal clavicle. She had a small area of exposed subchondral bone centrally over her humeral head but her glenoid was free of chondromalacia. Her biceps tendon was absent Condition: stable Disposition: PACU Procedure: The patient was taken to the operating room after she was given an interscalene block. She was given 2 g of Ancef. She was positioned in the lateral position with the right arm in 15 L 20 pounds of traction. The arm was prepped and draped in the usual fashion. A timeout was performed. A posterior portal was made 2 cm inferior medial to the posterior corner of the acromion. A scope cannula trocar were driven into the glenohumeral joint. An anterior working cannula was position. The diagnostic portion of the glenohumeral arthroscopy was performed. The above findings were noted. Attention was then directed to the subacromial space and in addition a lateral working portal was made. Bursal tissue was removed with the Matson and Nephew Werewolf shaver. The leading edge of acromion was outlined revealing prominent anterior spurs the limited room for the repair and also would impinge on the repair. A 5.5 mm acromionizer was used in approximately 6 mm of anterior and inferior acromion were removed. Dissection was moved medially with the Matson [employer] Nephew Werewolf probe and the distal clavicle outlined. A 5.5 mm acromionizer was passed through the anterior portal and approximately 8 mm of distal clavicle excised. Attention was then focused on the rotator cuff. The tear seem to be a concentric tear and fairly mobile. Decision was made to proceed with a double row repair. Through a lateral stab wound a Matson and Nephew Helicoil 4.5 m anchor was placed in the posterior medial footprint. A Matson and Nephew FirstPass suture passer was used to shuttle 1 limb of tape through the posterior cuff approximately 6 mm from the edge and a second limb approximately 5 mm anterior to the. A second Matson and Nephew Helicoil anchor was placed in the anterior medial footprint and sutures passed in identical fashion. The sutures were secured with a sliding Warren knot and half hitch. Next through the lateral portal a Matson [employer] Nephew Helicoil knotless anchor was placed laterally and centrally. All 4 sutures were tensioned through that anchor and it was secured drawing the lateral cuff down to bone. Arthroscopic clip was removed. Portals were closed with 3-0 Prolene. Sterile dressings were applied. The patient was placed in a sling, extubated, and taken to recovery room in stable condition.
[2021-10-09] MEDS: oxyCODONE-APAP 10-325 mg Tablet 1 TAB PO (09:45)
--- NOTE | 2021-10-09 19:57 | ANE.PACU2 ---
Inpatient post-anesthesia follow up: Airway intact: Yes Vital signs: Temperature 98 F Pulse Rate 65 Respiratory Rate 16 Blood Pressure 168/66 Pulse Oximetry 95 Oxygen Delivery Me thod Room Air Oxygen Flow Rate 10 Fraction of Inspir ed Oxygen Hydration adequate: Yes Nausea and vomiting: Yes Pain level: 1 Mental status: Baseline
== END 2021-10-09 10:05 | disposition home or self-care (01) ==
PROVIDERS: PCP Nurse Practitioner Family; Visit Provider Orthopaedic Surgery
PROC: (CPT 29805; principal; 2021-10-09 07:00)
PROC: (CPT 29824; 2021-10-09 07:00)
DX: M75.101 Unspecified rotator cuff tear or rupture of right shoulder, not specified as traumatic (principal); M25.811 Other specified joint disorders, right shoulder; M13.811 Other specified arthritis, right shoulder; I25.10 Atherosclerotic heart disease of native coronary artery without angina pectoris; E11.22 Type 2 diabetes mellitus with diabetic chronic kidney disease; I12.9 Hypertensive chronic kidney disease with stage 1 through stage 4 chronic kidney disease, or unspecified chronic kidney disease; N18.9 Chronic kidney disease, unspecified; E11.40 Type 2 diabetes mellitus with diabetic neuropathy, unspecified; E78.5 Hyperlipidemia, unspecified; E03.9 Hypothyroidism, unspecified; Z79.891 Long term (current) use of opiate analgesic; I25.2 Old myocardial infarction; E66.9 Obesity, unspecified; Z68.30 Body mass index [BMI] 30.0-30.9, adult
CPT/HCPCS: 29824; 29826; 29827; 36416; 82962; 96374; 96375; C1713; J0690; J1100; J1200; J2250; J2370; J2405; J2704; J2710; J2795; J3010; J3490; J7030

== ENCOUNTER → 2021-12-29 10:43 | Outpatient (BNVA) | payer MEDICARE, MEDICAID, SELFPAY | PROVIDERS: PCP Nurse Practitioner Family; Visit Provider Specialist | DX: G43.709 Chronic migraine without aura, not intractable, without status migrainosus (principal); Z96.653 Presence of artificial knee joint, bilateral | CPT/HCPCS: 96372; 99213; 99214; J1885 ==

== ENCOUNTER 2021-12-31 06:00 | Outpatient (RCR) | payer MEDICARE, MEDICAID, SELFPAY | END 2022-01-28 23:59 | disposition home or self-care (01) | LOC: TPT 06:00 | PROVIDERS: PCP Nurse Practitioner Family; Referring Provider Orthopaedic Surgery; Visit Provider Orthopaedic Surgery | DX: Z47.89 Encounter for other orthopedic aftercare (principal) | CPT/HCPCS: 97110; 97162 ==

== ENCOUNTER → 2022-04-07 09:49 | Outpatient (BNVA) | payer MEDICARE, MEDICAID, SELFPAY | PROVIDERS: PCP Nurse Practitioner Family; Visit Provider Internal Medicine Nephrology | DX: N18.32 Chronic kidney disease, stage 3b (principal); E11.9 Type 2 diabetes mellitus without complications; E78.5 Hyperlipidemia, unspecified; I10 Essential (primary) hypertension | CPT/HCPCS: 80053; 80061; 80069; 82043; 82306; 82310; 83036; 83970; 84443; 85025 ==

== ENCOUNTER 2022-05-11 13:44 | Outpatient (CLI) | payer MEDICARE, MEDICAID, SELFPAY ==
--- NOTE | 2022-05-11 13:56 | MM_ITS ---
WS: [id number] BILATERAL 3D TOMOSYNTHESIS DIGITAL SCREENING MAMMOGRAPHY WITH CAD CLINICAL INFORMATION: SCREENING HISTORY: Screening mammogram. No current complaints. COMPARISON: May 07, 2021 TECHNIQUE: Bilateral CC and MLO views. FINDINGS: Scattered fibroglandular densities bilaterally. Punctate and lucent centered calcifications. Vascular calcifications. No suspicious focal mass, asymmetry, calcifications, or architectural distortion. No evidence of malignancy. MM/[place] [id number] IMPRESSION: BI-RADS: 2-Benign FOLLOW UP: 1 Year Follow-up Recommend return to annual screening mammography.
== END 2022-05-11 13:45 | disposition home or self-care (01) ==
PROVIDERS: PCP Nurse Practitioner Family; Visit Provider Nurse Practitioner Family
DX: Z12.31 Encounter for screening mammogram for malignant neoplasm of breast (principal); R92.2 Inconclusive mammogram
CPT/HCPCS: 77063; 77067

== ENCOUNTER → 2022-06-26 10:48 | Outpatient (BNVA) | payer MEDICARE, MEDICAID, SELFPAY | PROVIDERS: PCP Nurse Practitioner Family; Visit Provider Internal Medicine Cardiovascular Disease | DX: I12.9 Hypertensive chronic kidney disease with stage 1 through stage 4 chronic kidney disease, or unspecified chronic kidney disease (principal); E11.22 Type 2 diabetes mellitus with diabetic chronic kidney disease; N18.30 Chronic kidney disease, stage 3 unspecified; Z79.4 Long term (current) use of insulin; G43.711 Chronic migraine without aura, intractable, with status migrainosus; R42 Dizziness and giddiness; E11.65 Type 2 diabetes mellitus with hyperglycemia; I25.2 Old myocardial infarction; E78.5 Hyperlipidemia, unspecified; I35.0 Nonrheumatic aortic (valve) stenosis | CPT/HCPCS: 99213; 99214 ==

== ENCOUNTER → 2022-07-09 12:07 | Outpatient (BNVA) | payer MEDICARE, MEDICAID, SELFPAY | PROVIDERS: PCP Nurse Practitioner Family; Visit Provider Nurse Practitioner Family | DX: G47.00 Insomnia, unspecified (principal); E78.5 Hyperlipidemia, unspecified; E03.9 Hypothyroidism, unspecified; L98.9 Disorder of the skin and subcutaneous tissue, unspecified; E11.65 Type 2 diabetes mellitus with hyperglycemia; Z79.4 Long term (current) use of insulin; E55.9 Vitamin D deficiency, unspecified; N18.30 Chronic kidney disease, stage 3 unspecified; I10 Essential (primary) hypertension | CPT/HCPCS: 80053; 80061; 82306; 83036; 84443; 85025 ==

== ENCOUNTER → 2022-07-21 15:16 | Outpatient (BNVA) | payer MEDICARE, MEDICAID, SELFPAY | PROVIDERS: PCP Nurse Practitioner Family; Visit Provider Specialist | DX: G43.709 Chronic migraine without aura, not intractable, without status migrainosus (principal) | CPT/HCPCS: 99213; 99214 ==

== ENCOUNTER → 2022-11-11 14:33 | Outpatient (BNVA) | payer MEDICARE, MEDICAID, SELFPAY | PROVIDERS: PCP Nurse Practitioner Family; Visit Provider Orthopaedic Surgery | DX: M25.561 Pain in right knee (principal); M25.562 Pain in left knee | CPT/HCPCS: 73560; 73565; 99213 ==

== ENCOUNTER → 2022-12-18 09:25 | Outpatient (BNVA) | payer MEDICARE, MEDICAID, SELFPAY | PROVIDERS: PCP Nurse Practitioner Family; Visit Provider Internal Medicine | DX: G43.711 Chronic migraine without aura, intractable, with status migrainosus (principal); R42 Dizziness and giddiness; E11.65 Type 2 diabetes mellitus with hyperglycemia; R06.02 Shortness of breath; I25.2 Old myocardial infarction; E78.5 Hyperlipidemia, unspecified; E66.9 Obesity, unspecified; R07.9 Chest pain, unspecified; R55 Syncope and collapse; Z79.4 Long term (current) use of insulin; I35.0 Nonrheumatic aortic (valve) stenosis; I12.9 Hypertensive chronic kidney disease with stage 1 through stage 4 chronic kidney disease, or unspecified chronic kidney disease; E11.22 Type 2 diabetes mellitus with diabetic chronic kidney disease; N18.30 Chronic kidney disease, stage 3 unspecified; Z68.31 Body mass index [BMI] 31.0-31.9, adult | CPT/HCPCS: 93005; 93270; 99214 ==

== ENCOUNTER 2022-12-24 07:50 | Outpatient (CLI) | payer MEDICARE, MEDICAID, SELFPAY ==
--- NOTE | 2022-12-24 08:00 | USCV_ITS ---
[place] Age: 72 Gender: F : 1950 Exam Date: 12/24/2022 08:11 Ordering Phys: Jon Ahuja MD Technologist: MILTON [place] [facility] [place]: RT LOWER LEG SWELLING HISTORY: Lower extremity swelling. PROCEDURES: Venous duplex imaging was performed in only the right lower extremity. The following venous structures were evaluated: common femoral vein, profunda vein, proximal portion of the greater saphenous vein, superficial femoral vein, and the popliteal vein. In addition, the posterior tibial and peroneal trunk were evaluated. Serial compression, augmentation maneuvers, and spectral Doppler flow evaluation were performed. FINDINGS: No evidence of DVT seen in any vessel visualized at this time. CONCLUSIONS No evidence of right lower extremity DVT. Cleve Alexander MD (Electronically Signed) Final Date: 24 December 2022 12:18 S
== END 2022-12-24 07:51 | disposition home or self-care (01) ==
PROVIDERS: PCP Nurse Practitioner Family; Visit Provider Orthopaedic Surgery
DX: M79.89 Other specified soft tissue disorders (principal)
CPT/HCPCS: 93971

== ENCOUNTER 2023-01-18 12:49 | Outpatient (CLI) | payer MEDICARE, MEDICAID, SELFPAY ==
--- NOTE | 2023-01-18 13:00 | USCV_ITS ---
Debbie Garcia Age: 72 Gender: F : 1950 Exam Date: 01/18/2023 13:32 Ordering Phys: Johnnie Jones M.D ([email or web address]) Technologist: Exam Location: [facility] [place]ication: chest pain BP: 127 / 71 HR: 65 Rhythm: Sinus Technical Quality: Adequate MEASUREMENTS (Male / Female) Normal Values 2D ECHO LV Diastolic Diameter PLAX 4.0 cm 4.2 - 5.9 / 3.9 - 5.3 cm LV Systolic Diameter PLAX 3.0 cm IVS Diastolic Thickness 1.3 cm 0.6 - 1.0 / 0.6 - 0.9 cm IVS Systolic Thickness 1.5 cm LVPW Diastolic Thickness 1.1 cm 0.6 - 1.0 / 0.6 - 0.9 cm LVPW Systolic Thickness 1.4 cm LVOT Diameter 2.0 cm LV Ejection Fraction 2D Teich 50.4 % LV Ejection Fraction MOD 2C 66.5 % LV Ejection Fraction 2C AL 65.9 % LA Diameter 3.4 cm M-MODE Aortic Annulus Diameter 2.9 cm LA Ao Ratio MM 1.2 MV E Point Septal Separation 1.8 cm DOPPLER AV Peak Velocity 124.0 cm/s LVOT Peak Velocity 75.0 cm/s AV Area Cont Eq vti 2.2 cm squared AV Area Cont Eq pk 1.9 cm squared MV E' Velocity 8.0 cm/s TR Peak Velocity 235.3 cm/s TR Peak Gradient 22.2 mmHg TV Peak E Velocity 78.0 cm/s Right Atrial Pressure 3.0 mmHg Pulmonary Artery Systolic Pressu 25.2 mmHg RV Acceleration Time 0.1 s FINDINGS Left Ventricle Left ventricle is normal in size. LV systolic function is normal with EF of 55 to 60%. No regional wall motion abnormalities are seen. Right Ventricle Normal in size and function Right Atrium Normal in size Left Atrium Normal in size Mitral Valve Structurally normal mitral valve. Mild mitral regurgitation. Aortic Valve Structurally normal aortic valve. No significant stenosis or regurgitation. Tricuspid Valve Mild tricuspid regurgitation. Pulmonary artery systolic pressure is normal. Pulmonic Valve Not well-visualized. Mild pulmonic regurgitation. Pericardium Normal Aorta Normal in size IVC Appears to be normal CONCLUSIONS LV systolic function is normal in size with EF of 55-60% Mild mitral regurgitation Mild tricuspid regurgitation Mild pulmonic regurgitation Compared to prior echocardiogram from 2019, no significant changes are seen Johnnie Jones MD (Electronically Signed) Final Date: 24 January 2023 13:23 S
== END 2023-01-18 12:50 | disposition home or self-care (01) ==
LOC: RAD 12:54
PROVIDERS: PCP Nurse Practitioner Family; Visit Provider Internal Medicine
DX: R07.9 Chest pain, unspecified (principal); R06.02 Shortness of breath; I08.1 Rheumatic disorders of both mitral and tricuspid valves
CPT/HCPCS: 93306

== ENCOUNTER 2023-01-21 08:33 | Outpatient (CLI) | payer MEDICARE, MEDICAID, SELFPAY ==
[2023-01-21 09:39] VITALS: BMI 31.7
--- NOTE | 2023-01-21 09:40 | NMCV_ITS ---
NM pedro perf SPECT r/s* [id number] Debbie Garcia Age: 72 Gender: F : 1950 Exam Date: 01/21/2023 09:40 Ordering Phys: Johnnie Jones M.D ([email or web address]) Technologist: MIS Lara Exam Location: [facility] Indications: CHEST PAIN; SHORTNESS OF BREATH STRESS TEST Please [facility] IMAGE PROTOCOL Rest/Stress 1 Lexiscan Day Radiopharmaceutical Dose (mCi) Administration Site Administered by Rest: Tc-99m 10.7 IV MIS Diana Sestamihoney Stress:Tc-99m 32.4 IV MIS Diana Sestamibi Rest: 21-Jan-2023 60 Discovery 630 Stress: 21-Jan-2023 30 Discovery 630 0.4mg Lexiscan. Images obtained in supine and prone position. SPECT RESULTS Technical Quality: Excellent Raw Data Analysis: Normal Image Corrections: No attenuation or motion correction applied Summed Stress Score: 5 Summed Rest Score: 7 Summed Difference Score: 1 PERFUSION FINDINGS There is medium sized, fixed perfusion defect noted in the lateral wall. This is consistent with prior infarct noted in the left circumflex artery territory with no evidence of ischemia. FUNCTIONAL RESULTS (calculated via Gated SPECT) Stress Image LV EF (%): 72 Stress EDV (mL):61 TID: 0.8 Stress ESV (mL):17 FUNCTIONAL FINDINGS: There is normal left ventricular systolic function. IMPRESSIONS 1. Medium sized area of prior infarct noted in the left circumflex artery territory with no evidence of ischemia 2. LV systolic function is normal Johnnie Jones MD (Electronically Signed) Final Date: 24 January 2023 08:34 S
--- NOTE | 2023-01-21 09:40 | ECG_ITS ---
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 Interpretive Statements NAME OF STUDY: LEXISCAN SESTAMIBI STRESS TEST INDICATION: [Chest Pain,SOB, ] Procedure: At the baseline, the blood pressure was 130/74mmHg with a heart rate of 74 bpm. The electrocardiogram showed normal sinus rhythm, normal axis with normal ST and T's. The Lexiscan was infused over a period of 20 seconds. A total of 0.4 mg of Lexiscan was infused. The stress phase was continued for a total of 5 minutes. Heart rate was at the end of stress phase was 97 bpm and a blood pressure of 114/46mmHg. The EKG at the peak infusion revealed normal sinus rhythm with no significant ST-T wave changes. Sestamibi was injected 20 seconds after the Lexiscan infusion. Blood pressure at the end of recovery phase was 120/55 mmHg with a heart rate of 92 bpm. Conclusion: 1. Normal EKG response to Lexiscan infusion 2. No Lexiscan induced chest pain or cardiac arrhythmia. 3. Normal blood pressure and heart rate response. 4. Sestamibi/sestamibi perfusion scan pending; see separate report. Electronically Signed On 02-04-2023 12:10:34 CDT by Johnnie Jones M.D. [id number]
[2023-01-21] MEDS: regadenoson 0.4 Mg/5 ml Syringe IVP (11:07)
[2023-01-21 11:14] VITALS: BP 120/55; PULSE 92
== END 2023-01-21 08:34 | disposition home or self-care (01) ==
LOC: CDL 08:35
PROVIDERS: PCP Nurse Practitioner Family; Visit Provider Internal Medicine
DX: R07.9 Chest pain, unspecified (principal)
CPT/HCPCS: 36415; 78452; 93017; 96374; A9500; J2785

== ENCOUNTER → 2023-02-22 14:47 | Outpatient (BNVA) | payer MEDICARE, MEDICAID, SELFPAY | PROVIDERS: PCP Nurse Practitioner Family; Visit Provider Nurse Practitioner Family | DX: E11.65 Type 2 diabetes mellitus with hyperglycemia (principal); Z79.4 Long term (current) use of insulin; R39.9 Unspecified symptoms and signs involving the genitourinary system; N39.0 Urinary tract infection, site not specified; I10 Essential (primary) hypertension | CPT/HCPCS: 80053; 80061; 81003; 83036; 84443; 85025; 87077; 87086; 87184 ==

== ENCOUNTER → 2023-04-12 09:45 | Outpatient (BNVA) | payer MEDICARE, MEDICAID, SELFPAY | PROVIDERS: PCP Nurse Practitioner Family; Visit Provider Nurse Practitioner Family | DX: N18.31 Chronic kidney disease, stage 3a (principal); N39.0 Urinary tract infection, site not specified | CPT/HCPCS: 80069; 81003; 82043; 82310; 83970; 85025; 87077; 87086; 87184 ==

== ENCOUNTER → 2023-06-18 09:17 | Outpatient (BNVA) | payer MEDICARE, MEDICAID, SELFPAY | PROVIDERS: PCP Nurse Practitioner Family; Visit Provider Internal Medicine Cardiovascular Disease | DX: I12.9 Hypertensive chronic kidney disease with stage 1 through stage 4 chronic kidney disease, or unspecified chronic kidney disease (principal); N18.30 Chronic kidney disease, stage 3 unspecified; E11.22 Type 2 diabetes mellitus with diabetic chronic kidney disease; Z79.4 Long term (current) use of insulin; E78.5 Hyperlipidemia, unspecified; M25.50 Pain in unspecified joint; G89.29 Other chronic pain; I35.0 Nonrheumatic aortic (valve) stenosis; E66.9 Obesity, unspecified; E11.40 Type 2 diabetes mellitus with diabetic neuropathy, unspecified; E11.65 Type 2 diabetes mellitus with hyperglycemia; G43.711 Chronic migraine without aura, intractable, with status migrainosus; I25.2 Old myocardial infarction; Z68.33 Body mass index [BMI] 33.0-33.9, adult | CPT/HCPCS: 99214 ==

== ENCOUNTER → 2023-07-02 13:46 | Outpatient (BNVA) | payer MEDICARE, MEDICAID, SELFPAY | PROVIDERS: PCP Nurse Practitioner Family; Visit Provider Nurse Practitioner Family | DX: N39.0 Urinary tract infection, site not specified (principal); Z11.52 Encounter for screening for COVID-19 | CPT/HCPCS: 81000; 87426 ==

== ENCOUNTER → 2023-07-12 13:27 | Outpatient (BNVA) | payer MEDICARE, MEDICAID, SELFPAY | PROVIDERS: PCP Nurse Practitioner Family; Visit Provider Specialist | DX: G43.709 Chronic migraine without aura, not intractable, without status migrainosus | CPT/HCPCS: 99213 ==

== ENCOUNTER → 2023-09-17 10:58 | Outpatient (BNVA) | payer MEDICARE, MEDICAID, SELFPAY | PROVIDERS: PCP Nurse Practitioner Family; Visit Provider Nurse Practitioner Family | DX: R05.9 Cough, unspecified (principal); U07.1 COVID-19 | CPT/HCPCS: 87400; 87426 ==

== ENCOUNTER → 2023-10-07 11:53 | Outpatient (BNVA) | payer MEDICARE, MEDICAID, SELFPAY | PROVIDERS: PCP Nurse Practitioner Family; Visit Provider Nurse Practitioner Family | DX: N18.31 Chronic kidney disease, stage 3a (principal); E55.9 Vitamin D deficiency, unspecified | CPT/HCPCS: 80069; 82043; 82306; 82310; 83970; 85025 ==

== ENCOUNTER → 2023-12-08 11:46 | Outpatient (BNVA) | payer MEDICARE, MEDICAID, SELFPAY | PROVIDERS: PCP Nurse Practitioner Family; Visit Provider Nurse Practitioner Family | DX: N18.30 Chronic kidney disease, stage 3 unspecified (principal); Z79.899 Other long term (current) drug therapy | CPT/HCPCS: 80069; 82043; 82542; 85025 ==

== ENCOUNTER → 2023-12-15 11:31 | Outpatient (BNVA) | payer MEDICARE, MEDICAID, SELFPAY | PROVIDERS: PCP Nurse Practitioner Family; Visit Provider Family Medicine | DX: Z20.822 Contact with and (suspected) exposure to COVID-19 (principal); R50.9 Fever, unspecified; J20.9 Acute bronchitis, unspecified; R09.89 Other specified symptoms and signs involving the circulatory and respiratory systems | CPT/HCPCS: 87400; 87426 ==

== ENCOUNTER → 2023-12-22 11:50 | Outpatient (BNVA) | payer MEDICARE, MEDICAID, SELFPAY | PROVIDERS: PCP Nurse Practitioner Family; Visit Provider Nurse Practitioner Family | DX: R05.9 Cough, unspecified (principal) | CPT/HCPCS: 71047 ==

== ENCOUNTER → 2023-12-24 11:10 | Outpatient (BNVA) | payer MEDICARE, MEDICAID, SELFPAY | PROVIDERS: PCP Nurse Practitioner Family; Visit Provider Nurse Practitioner Family | DX: E11.65 Type 2 diabetes mellitus with hyperglycemia (principal); Z79.4 Long term (current) use of insulin | CPT/HCPCS: 80053; 80061; 83036; 84443; 85025 ==

== ENCOUNTER → 2023-12-28 11:45 | Outpatient (BNVA) | payer MEDICARE, MEDICAID, SELFPAY | PROVIDERS: PCP Nurse Practitioner Family; Visit Provider Nurse Practitioner Family | DX: I10 Essential (primary) hypertension (principal); E03.9 Hypothyroidism, unspecified | CPT/HCPCS: 85025 ==

== ENCOUNTER → 2024-02-29 16:02 | Outpatient (BNVA) | payer MEDICARE, MEDICAID, SELFPAY | PROVIDERS: PCP Nurse Practitioner Family; Visit Provider Nurse Practitioner Family | DX: E55.9 Vitamin D deficiency, unspecified (principal); E11.40 Type 2 diabetes mellitus with diabetic neuropathy, unspecified; F32.9 Major depressive disorder, single episode, unspecified; N18.30 Chronic kidney disease, stage 3 unspecified | CPT/HCPCS: 80069; 82043; 82310; 83970; 85025 ==

== ENCOUNTER → 2024-05-25 12:03 | Outpatient (BNVA) | payer MEDICARE, MEDICAID, SELFPAY | PROVIDERS: PCP Nurse Practitioner Family; Visit Provider Nurse Practitioner Family | DX: E11.65 Type 2 diabetes mellitus with hyperglycemia; E55.9 Vitamin D deficiency, unspecified; Z79.4 Long term (current) use of insulin; E78.5 Hyperlipidemia, unspecified; G47.00 Insomnia, unspecified | CPT/HCPCS: 80053; 80061; 82306; 82607; 83036; 84443; 85025 ==

== ENCOUNTER 2024-07-11 13:40 | Outpatient (CLI) | payer MEDICARE, MEDICAID, SELFPAY ==
--- NOTE | 2024-07-11 14:04 | XR_ITS ---
WS: [id number] XR shoulder LT min 2V* [id number] REASON FOR EXAM: M25.511 - Pain in left shoulder FINDINGS: No fracture or focal bone lesion. Acromioclavicular joint is intact with mild subchondral sclerosis. Glenohumeral joint space is not optimally demonstrated but does not appear to be significantly narrow ed. There is mild subchondral sclerosis of the acetabulum. There is a small anchor in the humeral head presumably for previous rotator cuff tendon repair. There is moderate sclerosis in the greater biceps tuberosity. XR/XR shoulder LT min 2V* [id number] IMPRESSION: Minimal osteoarthritis in the acromioclavicular joint. Minimal osteoarthritis in the shoulder joint. Moderate rotator cuff tendon arthropathy with previous rotator cuff tendon repa ir.
--- NOTE | 2024-07-11 14:04 | XR_ITS ---
WS: [id number] XR shoulder RT min 2V* [id number] REASON FOR EXAM: M25.511 - Pain in right shoulder FINDINGS: No fracture or focal bone lesion. There is widening of the acromioclavicular joint with moderate subchondral sclerosis and osteophytosi s. There is inferior subluxation of the humeral head. The glenohumeral joint space is not optimally demonstrated but likely is at least moderately narrowed as there is moderate subchondral sclerosis of the glenoid and mild osteophytosis of the humeral head . There is moderate sclerosis and cystic change in the greater biceps tuberosity. XR/XR shoulder RT min 2V* [id number] IMPRESSION: Presumed surgical alteration of the acromioclavicular joint due to anterior imp ingement demonstrated on MRI examination 08/13/2021. Likely at least moderate osteoarthritis of the glenohumeral joint. Moderate rotator cuff tendon arthropathy.
== END 2024-07-11 13:41 | disposition home or self-care (01) ==
PROVIDERS: PCP Nurse Practitioner Family; Visit Provider Nurse Practitioner Family
DX: S43.112A Subluxation of left acromioclavicular joint, initial encounter (principal); M75.102 Unspecified rotator cuff tear or rupture of left shoulder, not specified as traumatic; M25.711 Osteophyte, right shoulder
CPT/HCPCS: 73030

== ENCOUNTER → 2024-07-12 11:52 | Outpatient (BNVA) | payer MEDICARE, MEDICAID, SELFPAY | PROVIDERS: PCP Nurse Practitioner Family; Visit Provider Specialist | DX: E78.5 Hyperlipidemia, unspecified (principal); G43.709 Chronic migraine without aura, not intractable, without status migrainosus; G43.711 Chronic migraine without aura, intractable, with status migrainosus; R42 Dizziness and giddiness | CPT/HCPCS: 99214; 99215 ==

== ENCOUNTER 2024-08-17 12:56 | Outpatient (CLI) | payer MEDICARE, MEDICAID, SELFPAY ==
--- NOTE | 2024-08-17 13:00 | MR_ITS ---
WS: [id number] MRI HEAD WITHOUT CONTRAST TECHNIQUE: Sagittal T1, T2 axial, T2 axial FLAIR, axial and coronal T1 images, axial susceptibility w eighted imaging, axial diffusion weighted images, and coronal T2 images were obtained. CLINICAL INFORMATION: G43.711 - Chronic migraine without aura, intractable, wit... COMPARISON: CT 2017 and MRI 2012 FINDINGS: No evidence of restricted diffusion to suggest acute ischemia. Ventricular system and basal cisterns are patent. Mild small vessel changes with moderate parenchymal volume loss. Small vessel changes in the bere. Normal posterior fossa. Normal vascular flow voids at the skull base. No extra-axial fluid collections. No evidence of mass or mass effect. Paranasal sinuses and mastoid air cells are well ae rated. Normal posterior nasopharynx. No hemosiderin on the susceptibly weighted images. Normal optic chiasm and pituitary infundibulum. Te mporal lobes and hippocampal formations are normal in appearance with mild symmetric atrophy. MR/MR head wo con* [id number] IMPRESSION: 1. No evidence of restricted diffusion to suggest acute ischemia. 2. Moderate small vessel changes with moderate parenchymal volume loss progres sed since 2012. 3. Small vessel changes in the bere. 4. No hemosiderin on susceptibility-weighted images. 5. Mild symmetric atrophy temporal lobes and hippocampal formations.
== END 2024-08-17 12:57 | disposition home or self-care (01) ==
LOC: RAD 12:57
PROVIDERS: PCP Nurse Practitioner Family; Visit Provider Specialist
DX: G31.89 Other specified degenerative diseases of nervous system (principal); G43.711 Chronic migraine without aura, intractable, with status migrainosus; R42 Dizziness and giddiness
CPT/HCPCS: 70551

== ENCOUNTER → 2024-08-29 12:50 | Outpatient (BNVA) | payer MEDICARE, MEDICAID, SELFPAY | PROVIDERS: PCP Nurse Practitioner Family; Visit Provider Nurse Practitioner Family | DX: N18.30 Chronic kidney disease, stage 3 unspecified (principal) | CPT/HCPCS: 80069; 82043; 82306; 82310; 83970; 85025 ==

== ENCOUNTER → 2024-09-14 11:55 | Outpatient (BNVA) | payer MEDICARE, MEDICAID, SELFPAY | PROVIDERS: PCP Nurse Practitioner Family; Visit Provider Nurse Practitioner Family | DX: E11.65 Type 2 diabetes mellitus with hyperglycemia (principal); Z79.4 Long term (current) use of insulin; E55.9 Vitamin D deficiency, unspecified | CPT/HCPCS: 80053; 80061; 82306; 82607; 83036; 84443; 85025 ==

== ENCOUNTER → 2024-10-09 14:44 | Outpatient (BNVA) | payer MEDICARE, MEDICAID, SELFPAY | PROVIDERS: PCP Nurse Practitioner Family; Referring Provider Nurse Practitioner Family; Visit Provider Nurse Practitioner | DX: M25.512 Pain in left shoulder (principal); M25.511 Pain in right shoulder; M19.011 Primary osteoarthritis, right shoulder; M19.012 Primary osteoarthritis, left shoulder | CPT/HCPCS: 20610; 73030; 99204; J1100; J2795; J3301 ==

== ENCOUNTER → 2024-10-17 10:17 | Outpatient (BNVA) | payer MEDICARE, MEDICAID, SELFPAY | PROVIDERS: PCP Nurse Practitioner Family; Visit Provider Nurse Practitioner Family | DX: M54.9 Dorsalgia, unspecified (principal); R07.1 Chest pain on breathing | CPT/HCPCS: 71046; 81000 ==

== ENCOUNTER → 2024-12-06 13:58 | Outpatient (BNVA) | payer MEDICARE, MEDICAID, SELFPAY | PROVIDERS: PCP Nurse Practitioner Family; Visit Provider Nurse Practitioner | DX: M19.011 Primary osteoarthritis, right shoulder (principal); M19.012 Primary osteoarthritis, left shoulder | CPT/HCPCS: 99213 ==

== ENCOUNTER → 2025-01-08 11:09 | Outpatient (BNVA) | payer MEDICARE, MEDICAID, SELFPAY | PROVIDERS: PCP Nurse Practitioner Family; Visit Provider Nurse Practitioner | DX: M19.011 Primary osteoarthritis, right shoulder (principal); M19.012 Primary osteoarthritis, left shoulder | CPT/HCPCS: 20610; J1100; J2795; J3301; J9999 ==

== ENCOUNTER → 2025-02-19 15:28 | Outpatient (BNVA) | payer MEDICARE, MEDICAID, SELFPAY | PROVIDERS: PCP Nurse Practitioner Family; Visit Provider Nurse Practitioner Family | DX: E11.65 Type 2 diabetes mellitus with hyperglycemia (principal); Z79.4 Long term (current) use of insulin; I10 Essential (primary) hypertension; E55.9 Vitamin D deficiency, unspecified | CPT/HCPCS: 80053; 80061; 82306; 82607; 83036; 84443; 85025 ==

== ENCOUNTER → 2025-03-01 09:33 | Outpatient (BNVA) | payer MEDICARE, MEDICAID, SELFPAY | PROVIDERS: PCP Nurse Practitioner Family; Visit Provider Nurse Practitioner Family | DX: E11.65 Type 2 diabetes mellitus with hyperglycemia (principal); Z79.4 Long term (current) use of insulin; N18.30 Chronic kidney disease, stage 3 unspecified | CPT/HCPCS: 80069; 82043; 82310; 83970; 85025 ==

== ENCOUNTER → 2025-03-12 11:43 | Outpatient (BNVA) | payer MEDICARE, MEDICAID, SELFPAY | PROVIDERS: PCP Nurse Practitioner Family; Visit Provider Nurse Practitioner Family | DX: E87.6 Hypokalemia (principal) | CPT/HCPCS: 80048 ==

== ENCOUNTER → 2025-03-13 13:44 | Outpatient (BNVA) | payer MEDICARE, MEDICAID, SELFPAY | PROVIDERS: PCP Nurse Practitioner Family; Visit Provider Internal Medicine Cardiovascular Disease | DX: I25.10 Atherosclerotic heart disease of native coronary artery without angina pectoris (principal); I35.0 Nonrheumatic aortic (valve) stenosis; I10 Essential (primary) hypertension; M54.9 Dorsalgia, unspecified; G89.29 Other chronic pain; F43.9 Reaction to severe stress, unspecified; I25.2 Old myocardial infarction | CPT/HCPCS: 99214 ==

== ENCOUNTER → 2025-04-02 11:22 | Outpatient (BNVA) | payer MEDICARE, MEDICAID, SELFPAY | PROVIDERS: PCP Nurse Practitioner Family; Visit Provider Nurse Practitioner Family | DX: E87.6 Hypokalemia (principal) | CPT/HCPCS: 80048 ==

== ENCOUNTER → 2025-04-23 10:23 | Outpatient (BNVA) | payer MEDICARE, MEDICAID, SELFPAY | PROVIDERS: PCP Nurse Practitioner Family; Visit Provider Nurse Practitioner | DX: M19.011 Primary osteoarthritis, right shoulder (principal); M19.012 Primary osteoarthritis, left shoulder | CPT/HCPCS: 20610; J1100; J2795; J3301; J9999 ==

== ENCOUNTER → 2025-06-19 11:55 | Outpatient (BNVA) | payer MEDICARE, MEDICAID, SELFPAY | PROVIDERS: PCP Nurse Practitioner Family; Visit Provider Nurse Practitioner Family | DX: E11.65 Type 2 diabetes mellitus with hyperglycemia (principal); I10 Essential (primary) hypertension; E55.9 Vitamin D deficiency, unspecified; Z79.4 Long term (current) use of insulin; I21.9 Acute myocardial infarction, unspecified | CPT/HCPCS: 80053; 80061; 82306; 82607; 83036; 84443; 85025 ==

== ENCOUNTER → 2025-07-12 12:18 | Outpatient (BNVA) | payer MEDICARE, MEDICAID, SELFPAY | PROVIDERS: PCP Nurse Practitioner Family; Visit Provider Nurse Practitioner Family | DX: S50.911A Unspecified superficial injury of right forearm, initial encounter (principal); X58.XXXA Exposure to other specified factors, initial encounter; L81.4 Other melanin hyperpigmentation; D48.5 Neoplasm of uncertain behavior of skin; L57.0 Actinic keratosis | CPT/HCPCS: 11102; 17000; 99203 ==

== ENCOUNTER → 2025-07-27 10:03 | Outpatient (BNVA) | payer MEDICARE, MEDICAID, SELFPAY | PROVIDERS: PCP Nurse Practitioner Family; Visit Provider Nurse Practitioner | DX: M19.011 Primary osteoarthritis, right shoulder (principal); M19.012 Primary osteoarthritis, left shoulder; Z71.89 Other specified counseling | CPT/HCPCS: 20610; J1100; J2795; J3301; J9999 ==

== ENCOUNTER → 2025-08-30 11:29 | Outpatient (BNVA) | payer MEDICARE, MEDICAID, SELFPAY | PROVIDERS: PCP Nurse Practitioner Family; Visit Provider Nurse Practitioner Family | DX: N18.30 Chronic kidney disease, stage 3 unspecified (principal); E55.9 Vitamin D deficiency, unspecified | CPT/HCPCS: 80069; 82043; 82306; 82310; 83970; 85025 ==

== ENCOUNTER → 2025-09-26 10:20 | Outpatient (BNVA) | payer MEDICARE, MEDICAID, SELFPAY | PROVIDERS: PCP Nurse Practitioner Family; Visit Provider Nurse Practitioner Family | DX: I25.10 Atherosclerotic heart disease of native coronary artery without angina pectoris (principal); R73.09 Other abnormal glucose; I21.9 Acute myocardial infarction, unspecified | CPT/HCPCS: 80048; 83036 ==

== ENCOUNTER → 2025-10-17 11:12 | Outpatient (BNVA) | payer MEDICARE, MEDICAID, SELFPAY | PROVIDERS: PCP Nurse Practitioner Family; Visit Provider Nurse Practitioner Family | DX: R89.9 Unspecified abnormal finding in specimens from other organs, systems and tissues (principal) | CPT/HCPCS: 80048 ==